=== PATIENT | male | born 1955 | race Caucasian/White ===

== ENCOUNTER 2018-10-31 21:23 | Emergency (ER) | payer BC ==
[2018-10-31 21:31] VITALS: TEMP 97.9
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
[2018-10-31 22:45] LABS: Basophils # (A) 0.1 k/uL (0-0.2); Basophils % (A) 2 %; Eosinophils # (A) 0.3 k/uL (0-0.7); Eosinophils % (A) 4 %; HCT 46.8 % (39.0-53.0); HGB 16.9 gm/dL (13.0-17.5); Lymphocytes # (A) 2.3 k/uL (1.0-4.8); Lymphocytes % (A) 35 %; MCH 33.6 pg (25.0-35.0); MCV 93.3 fL (80.0-100.0); Mean Platelet Volume 6.7; Monocytes # (A) 0.4 k/uL (0-1.0); Monocytes % (A) 7 %; Neutrophils # (A) 3.1 k/uL (1.3-7.7); Neutrophils % (A) 48 %; Platelet Count 188 k/uL (150-450); RBC 5.02 m/uL (4.30-5.90); RDW 12.6 % (11.5-15.5); WBC 6.5 k/uL (3.8-10.6)
--- NOTE | 2018-10-31 22:52 | XR ---
EXAM: XR Chest, 2 Views CLINICAL HISTORY: Chest Pain TECHNIQUE: Frontal and lateral views of the chest. COMPARISON: None. FINDINGS: Lungs: A 0.7 cm nodular density is noted at the right lung base. Neoplasm or metastatic disease cannot be excluded. Pleural space: No pneumothorax. Heart: Heart is normal in size. Cardiac mediastinal silhouette unremarkable. Mediastinum: See above. Bones/joints: No rib fracture. IMPRESSION: Nodule of the right lung base. CT imaging of the chest without contrast is advised for further evaluation.
[2018-10-31 22:53] LABS: ALT 30 U/L (21-72); AST 21 U/L (17-59); African American GFR (CKD) >90 (>60 ml/min/1.73 sqM); Albumin 4.4 g/dL (3.5-5.0); Alkaline Phosphatase 76 U/L (38-126); Anion Gap 11 mmol/L; Blood Urea Nitrogen 15 mg/dL (9-20); Calcium 9.6 mg/dL (8.4-10.2); Carbon Dioxide 21 mmol/L (22-30); Chloride 109 mmol/L (98-107); Glucose 116 mg/dL (74-99); Potassium 3.9 mmol/L (3.5-5.1); Sodium 141 mmol/L (137-145); Total Protein 7.5 g/dL (6.3-8.2)
[2018-10-31 23:06] LABS: D-Dimer 0.3 mg/L FEU (<0.60); INR 1.3 (<1.2); Partial Thromboplastin Time 34.9 sec (22.0-30.0)
[2018-11-01 00:53] VITALS: BP 132/85; PULSE 70; RESP 18
== END 2018-11-01 00:52 | disposition home or self-care (01) ==
LOC: EC 21:23
DX: M62.838 Other muscle spasm (principal); R42 Dizziness and giddiness; M79.601 Pain in right arm; I48.91 Unspecified atrial fibrillation; E11.9 Type 2 diabetes mellitus without complications; I10 Essential (primary) hypertension; Z87.891 Personal history of nicotine dependence; Z79.84 Long term (current) use of oral hypoglycemic drugs; Z79.01 Long term (current) use of anticoagulants; Z79.899 Other long term (current) drug therapy; Z88.8 Allergy status to other drugs, medicaments and biological substances
CPT/HCPCS: 36415; 71046; 80053; 83735; 84484; 85025; 85379; 85610; 85730; 93005; 99284

== ENCOUNTER 2022-07-19 09:27 | Emergency (ER) | payer MEDICARE ==
[2022-07-19] MEDS ORDERED: IPRATROPIUM-ALBUTEROL 3 ML NEB INHALATION STA (10:06)
--- NOTE | 2022-07-19 10:18 | XR ---
EXAMINATION TYPE: XR chest 2V DATE OF EXAM: 07/19/2022 COMPARISON: Chest x-ray April 17, 2022 HISTORY: Cough and difficulty in breathing. TECHNIQUE: Frontal and lateral views of the chest are obtained. FINDINGS: There is no suspicious new focal air space opacity, pleural effusion, or pneumothorax seen . The cardiac silhouette size is stable and within normal limits. The osseous structures are intac t. IMPRESSION: No acute pulmonary infiltrate. No significant change from prior.
--- NOTE | 2022-07-19 10:20 | ED ---
URI HPI - General Chief Complaint: Upper Respiratory Infection Stated Complaint: Sore throat, Congestion Time Seen by Provider: 07/19/22 09:33 Source: patient, RN notes reviewed Mode of arrival: ambulatory Limitations: no limitations - History of Present Illness Initial Comments: This is a 58-year-old male who presents to the emergency department for coughing and congestion. States that this started 4 days ago. He went to urgent care 2 days ago and was started on doxycycline. States that he has not had any improvement since starting this. He is also using [id number] Coricidin HBP, also with no improvement in symptoms. Denies any chest pain or difficulty breathing. States that the coughing and congestion are the most bothersome symptoms at this time. The cough is not productive. Denies having asthma, COPD, or any other respiratory illnesses. He is a former smoker. Denies any fevers, chills, sore throat, dyspnea, chest pain, palpitations, abdominal pain, nausea, vomiting, diarrhea, back pain, or headaches. MD Complaint: cough, nasal congestion Onset/Timin -: days(s) - Related Data Home Medications Medication Instructions Recorded Confirmed Linagliptin [Tradjenta] 5 mg PO DAILY 10/31/18 10/31/18 Losartan [Cozaar] 50 mg PO DAILY 10/31/18 10/31/18 Metoprolol Succinate [Toprol XL] 25 mg PO DAILY 10/31/18 10/31/18 Rivaroxaban [Xarelto] 20 mg PO DAILY 10/31/18 10/31/18 Sotalol [Betapace] 120 mg PO BID 10/31/18 10/31/18 Previous Rx's Medication Instructions Recorded Cyclobenzaprine [Flexeril] 10 mg PO TID PRN #15 tab 04/17/22 Ipratropium Dunreith 0.06%Nasal 2 spray EA NOSTRIL BID #15 ml 07/19/22 [Atrovent Nasal 0.06%] Promethazine/Dextromethorphan 5 ml PO Q4-6H PRN #473 ml 07/19/22 [Promethazine-Dm Syrup] predniSONE 50 mg PO DAILY 5 Days #5 tab 07/19/22 Allergies Allergy/AdvReac Type Severity Reaction Status Date / Time Penicillins AdvReac Nausea & Verified 07/19/22 09:32 Vomiting Avxebnh-[id number]-CzS Reductase AdvReac Unknown Verified 07/19/22 09:32 Inhibitor [Ushezgy-Fco-Vkb Reductase Inhibitor] tramadol AdvReac Nausea & Verified 07/19/22 09:32 Vomiting Review of Systems ROS Statement: Those systems with pertinent positive or pertinent negative responses have been documented in the HPI. ROS Other: All systems not noted in ROS Statement are negative. Past Medical History Past Medical History: Atrial Fibrillation, Diabetes Mellitus, Hypertension History of Any Multi-Drug Resistant Organisms: None Reported Past Surgical History: Back Surgery, Cholecystectomy Additional Past Surgical History / Comment(s): sinus sx Past Psychological History: No Psychological Hx Reported Smoking Status: Former smoker Past Alcohol Use History: Occasional Past Drug Use History: None Reported General Exam Limitations: no limitations General appearance: alert, in no apparent distress Head exam: Present: atraumatic, normocephalic, normal inspection Respiratory exam: Present: other (Diminished breath sounds bilaterally). Absent: wheezes, rales, rhonchi, accessory muscle use Cardiovascular Exam: Present: regular rate, normal rhythm, normal heart sounds. Absent: systolic murmur, diastolic murmur, rubs, gallop, clicks Neurological exam: Present: alert, oriented X3, CN II-XII intact Psychiatric exam: Present: normal affect, normal mood Skin exam: Present: warm, dry, intact, normal color. Absent: rash Course Vital Signs 07/19/22 07/19/22 07/19/22 09:30 10:01 11:01 Temperature 98.4 F Pulse Rate 101 H 78 Respiratory 22 16 Rate Blood Pressure 163/97 O2 Sat by Pulse 99 Oximetry 07/19/22 07/19/22 11:08 11:19 Temperature 98.6 F Pulse Rate 80 81 Respiratory 14 Rate Blood Pressure 136/88 O2 Sat by Pulse 98 Oximetry Medical Decision Making - Medical Decision Making This is a 66-year-old male who presents to the emergency department for coughing and congestion. Was pt. sent in by a medical professional or institution? @ -No Did you speak to anyone other than the patient for history? @ -No Did you review nursing and triage notes? @ -Yes, and I agree, it is accurate with regards to the patient's symptoms. Were old charts reviewed? @ -No Differential Diagnosis? @ -Differential Cough: Influenza, Covid, RSV, croup, allergic rhinitis, GERD, pneumonia, bronchitis, COPD, viral pharyngitis, streptococcal pharyngitis, this is not meant to be an all-inclusive list. EKG interpreted by me (3pts min.)? @ -Not obtained X-rays interpreted by me (1pt min.)? @ -Chest x-ray obtained, my interpretation identifies no localized consolidations or infiltrates. CT interpreted by me (1pt min.)? @ -Not obtained U/S interpreted by me (1pt. min.)? @ -Not obtained What testing was considered but not performed? (CT, X-rays, U/S, labs)? Why? @ -None What meds were considered but not given? Why? @ -None Did you discuss the management of the patient with other professionals? @ -No Did you reconcile home meds? @ -No Was smoking cessation discussed for >3mins.? @ -No Was critical care preformed (if so, how long)? @ -No Were there social determinants of health that impacted care today? How? (Homelessness, low income, unemployed, alcoholism, drug addiction, transportation, low edu. Level, literacy, decrease access to med. care, fci, rehab)? @ -No Was there de-escalation of care discussed even if they declined? (Discuss DNR or withdrawal of care, Hospice)? @ -No What co-morbidities impacted this encounter? (DM, HTN, Smoking, COPD, CAD, Cancer, CVA, Hep., AIDS, mental health diagnosis, sleep apnea, morbid obesity)? @ -DM Was patient admitted / discharged? @ -Discharged. Chest x-ray obtained revealing no acute findings. Covid, influenza, and RSV testing were negative. DuoNeb breathing treatment administered with some improvement in symptoms. Advised that this is most l ikely related to a viral bronchitis, which is why the doxycycline has not been effective. Prescription for prednisone, promethazine DM cough syrup, and ipratropium nasal spray provided with dosing instructions reviewed. Otherwise advised to continue with supportive care and follow up with his PCP in 1-2 days. Undiagnosed new problem with uncertain prognosis? @ -None Drug Therapy requiring intensive monitoring for toxicity (Heparin, Nitro, Insulin, Cardizem)? @ -None Were any procedures done? @ -None Diagnosis/symptom? @ -Bronchitis Acute, or Chronic, or Acute on Chronic? @ -Acute Uncomplicated (without systemic symptoms) or Complicated (systemic symptoms)? @ -Uncomplicated Side effects of treatment? @ -None Exacerbation, Progression, or Severe Exacerbation] @ -Not applicable Poses a threat to life or bodily function? @ -No Return precautions reviewed in depth, the patient is instructed to return to the emergency department with any new, worsening, or concerning symptoms. Patient verbalized understanding. This case was discussed in detail with the attending ED physician, Dr. Fowler. Presentation, findings, and treatment plan discussed in detail as well. - Lab Data Lab Results 07/19/22 Range/Units 10:10 Influenza Type A (PCR) Not Detected (Not Detectd) Influenza Type B (PCR) Not Detected (Not Detectd) RSV (PCR) Not Detected (Not Detectd) SARS-CoV-2 (PCR) Not Detected (Not Detectd) - Radiology Data Radiology results: report reviewed, image reviewed Disposition Clinical Impression: Upper respiratory tract infection Disposition: HOME SELF-CARE Instructions (If sedation given, give patient instructions): Upper Respiratory Infection (ED) Additional Instructions: Return to the emergency department with any new, worsening, or concerning symptoms. Take the prednisone daily for 5 days. You can use the cough medication every 4-6 hours as needed. The nasal spray can be used twice daily to help with the nasal drainage. Follow up with your primary care provider in 1-2 days. Prescriptions: Ipratropium Dunreith 0.06%Nasal [Atrovent Nasal 0.06%] 2 spray EA NOSTRIL BID #15 ml predniSONE 50 mg PO DAILY 5 Days #5 tab Promethazine/Dextromethorphan [Promethazine-Dm Syrup] 5 ml PO Q4-6H PRN #473 ml PRN Reason: Cough Is patient prescribed a controlled substance at d/c from ED?: No Referrals: Dawson Segovia MD [Primary Care Provider] - 1-2 days
[2022-07-19 11:21] VITALS: BP 136/88; PULSE 81; RESP 14; TEMP 98.6
== END 2022-07-19 11:27 | disposition home or self-care (01) ==
LOC: EC 09:27
DX: J06.9 Acute upper respiratory infection, unspecified (principal); I48.91 Unspecified atrial fibrillation; I10 Essential (primary) hypertension; E11.9 Type 2 diabetes mellitus without complications; Z87.891 Personal history of nicotine dependence; Z88.0 Allergy status to penicillin; Z88.5 Allergy status to narcotic agent; Z88.8 Allergy status to other drugs, medicaments and biological substances; Z79.01 Long term (current) use of anticoagulants; Z79.84 Long term (current) use of oral hypoglycemic drugs; Z79.899 Other long term (current) drug therapy; Z20.822 Contact with and (suspected) exposure to COVID-19
CPT/HCPCS: 71046; 87636; 94640; 99283

== ENCOUNTER 2023-10-14 08:00 | Inpatient (IN) | payer MEDICARE ==
[~2023-10-14 08:00] MED LIST: HEPARIN SODIUM,PORCINE 10,000 UNIT/ML 1 ML VIAL ONE; LIDOCAINE 1% INJ 10MG/ML (20 ML MDV) ONE; MIDAZOLAM 2 MG/2 ML VIAL ONE; PHENYLEPHRINE 10 MG/ML VIAL ONE; PROPOFOL 10 MG/ML 20 ML VIAL IV ONE; SODIUM CHLORIDE 0.9% 1,000 ML BAG ONE; SUCCINYLCHOLINE CHLORIDE 200 MG/10 ML VIAL IV ONE; fentaNYL (PF) 50 MCG/ML 2 ML AMP ONE
[2023-10-14] MEDS: IOPAMIDOL-370 100ML BTL INJ ONE (10:15)
[2023-10-14] MEDS ORDERED: ONDANSETRON 4 MG/2 ML VIAL ONE ×2 (19:02)
[2023-10-15] MEDS ORDERED: FLECAINIDE 50 MG TAB ONE ×4 (12:39→20:20)
[2023-10-15] MEDS ORDERED: METOPROLOL TARTRATE 50 MG TAB ONE ×4 (12:39→20:20)
[2023-10-15] MEDS ORDERED: DILTIAZEM 125 MG/25 ML VIAL IV ONE (17:55)
[2023-10-15] MEDS ORDERED: SODIUM CHLORIDE 0.9% 100 ML BAG IV ONE (17:55)
[2023-10-16] MEDS ORDERED: FLECAINIDE 50 MG TAB ONE ×4 (05:53→17:13)
[2023-10-16] MEDS ORDERED: LOSARTAN 25 MG TAB ONE ×2 (08:47)
[2023-10-16] MEDS ORDERED: RIVAROXABAN 20 MG TAB PO ONE ×2 (08:48)
[2023-10-16] MEDS ORDERED: METOPROLOL TARTRATE 50 MG TAB ONE ×6 (08:48→19:56)
[2023-10-16] MEDS ORDERED: PROPOFOL 10 MG/ML 20 ML VIAL IV ONE (12:00)
[2023-10-16] MEDS ORDERED: ONDANSETRON 4 MG/2 ML VIAL ONE (12:00)
[2023-10-16] MEDS ORDERED: glipiZIDE 10 MG TAB ONE ×2 (15:36)
[2023-10-17] MEDS ORDERED: DILTIAZEM 125 MG in SODIUM CHLORIDE 0.9% 100 ML IV SCH (07:15)
[2023-10-17] MEDS ORDERED: ONDANSETRON 4 MG/2 ML VIAL IVP PRN (07:18)
[2023-10-17] MEDS ORDERED: ACETAMINOPHEN TAB 325 MG TAB PO PRN (07:19)
[2023-10-17] MEDS ORDERED: glipiZIDE 10 MG TAB PO SCH (07:30)
[2023-10-17] MEDS ORDERED: RIVAROXABAN 20 MG TAB PO SCH (07:30)
[2023-10-17] MEDS ORDERED: RIVAROXABAN 20 MG TAB PO ONE ×2 (08:26)
[2023-10-17] MEDS ORDERED: LOSARTAN 25 MG TAB ONE ×2 (08:26)
[2023-10-17] MEDS ORDERED: METOPROLOL TARTRATE 50 MG TAB ONE ×2 (08:26)
[2023-10-17] MEDS ORDERED: glipiZIDE 5 MG TAB ONE ×2 (08:26)
[2023-10-17] MEDS ORDERED: LOSARTAN 25 MG TAB PO SCH (09:00)
[2023-10-17] MEDS ORDERED: COLCHICINE 0.6 MG EACH PO SCH (09:00)
[2023-10-17] MEDS ORDERED: METOPROLOL TARTRATE 50 MG TAB PO SCH ×2 (09:00)
--- NOTE | 2023-10-17 15:56 | HP ---
HISTORY AND PHYSICAL HISTORY: A -wyks-unv male patient who has paroxysmal atrial fibrillation despite sotalol 120 mg twice daily. He has a longstanding history of atrial fibrillation for many, many years and that was documented almost 10 years back. Recently, he underwent back surgery and he had atrial fibrillation with RVR once again. Initially he did well with sotalol 120 mg twice daily, but he is now experiencing frequent episodes of atrial fibrillation despite sotalol and they last for about an hour at a time. He is asymptomatic from this. He also has a history of polycythemia and he had recently a phlebotomy performed about 2 weeks back. He has mild sleep apnea. PHYSICAL EXAMINATION: HEART: On examination, his heart sounds are normal and regular. Normal S1, normal S2. No murmurs. LUNGS: Breath sounds are clear. Clear lungs. NECK: No JVD. He denies any headaches, blurred vision, shortness of breath, orthopnea, PND, syncope, or chest pain. PAST HISTORY: Type 2 diabetes, hypertension. He has a history of gastric ulcer without hemorrhage. SOCIAL HISTORY: He stopped smoking 40 years back. IMPRESSION: 1. Paroxysmal atrial fibrillation with RVR despite sotalol 120 mg twice daily with increasing episodes and frequent breakthrough episodes lasting for up to 1 hour. 2. Hypertension. 3. Type 2 diabetes. 4. Polycythemia vera. The labs were reviewed and his hematocrit is 42 and hemoglobin is 15.0, performed after his recent phlebotomy. PLAN: Proceed with atrial fibrillation ablation for management of paroxysmal symptomatic atrial fibrillation which is drug refractory. MMODL / IJN: [id number] /
--- NOTE | 2023-10-17 15:56 | CE ---
CARDIAC ELECTROPHYSIOLOGY REPORT DIAGNOSIS: Paroxysmal atrial fibrillation, drug refractory despite 120 mg of sotalol b.i.d. DETAILS OF THE PROCEDURE: The patient is brought to the EP lab in a fasting state. Written informed consent was obtained prior to the procedure. General anesthesia was provided. Temperature monitoring and esophageal probe was placed in the esophagus. Venous sheaths were placed in the right and left femoral veins. IV heparin was started. Intracardiac echo revealed normal LV function. No pericardial effusion. No left atrial appendage thrombus and large left atrium. Lyne-ha-dauew transseptal catheterization was performed. Right atrial pressure was 7/2/4 mmHg and LA pressure 11/1/6 mmHg. Sheath was placed in the left atrium. This was exchanged for cryoablation sheath. Cryoablation of the pulmonary veins was performed. Several attempts had to be made for complete occlusion of all 4 pulmonary veins on account of clockwise rotation of the heart, a very posterior takeoff of the right inferior pulmonary vein, relatively anterior takeoff of the right superior pulmonary vein, very posteriorly oriented left inferior pulmonary vein with two large tributaries, more anteriorly oriented takeoff for the left superior pulmonary vein. In addition, the right superior, left superior, and the left inferior veins were quite large with large early branching. All veins were successfully isolated with temperature monitoring of the esophagus, esophageal deflection, and phrenic nerve monitoring. There was no paresis noted. The left atrial septum was also ablated with cannulation of the superior branch of the right inferior pulmonary vein. The patient tolerated the procedure well without any acute complications. During cannulation of the left superior pulmonary vein, an atrial tachycardia with eccentric activation was induced. Later, this degenerated to atrial fibrillation and he underwent electrical cardioversion for this. Sinus cycle length 933 milliseconds, DE interval 149 milliseconds, and QRS 110 milliseconds, and QT interval 427 milliseconds in sinus rhythm. AH interval 90 milliseconds and HV interval 41 milliseconds. AV node Wenckebach block 420 milliseconds and sinus node recovery times at a pacing cycle length of 600 milliseconds was 1006 milliseconds. All sheaths were removed at the end of the procedure and venous stasis was obtained on both sides with closure device. IMPRESSION: Successful ablation for atrial fibrillation with pulmonary vein isolation and left atrial septal ablation. PLAN: 1. Continue anticoagulation. 2. Stop sotalol. 3. Watch for any macro reentry especially mitral reentry in the future. MMODL / IJN: [id number] /
== END 2023-10-17 08:55 | disposition home or self-care (01) | DRG 274 ==
LOC: CATHEP 08:00 → 3NCARDOBS 10:15
PROVIDERS: ADMIT Internal Medicine Clinical Cardiac Electrophysiology; ATTEND Internal Medicine Clinical Cardiac Electrophysiology
PROC: 5A2204Z Restoration of Cardiac Rhythm, Single (ICD-10-PCS; 2023-10-14)
PROC: 02553ZZ Destruction of Atrial Septum, Percutaneous Approach (ICD-10-PCS; principal; 2023-10-14 07:15)
PROC: 055 Upper Veins, Destruction (ICD-10-PCS; 2023-10-14 07:15)
DX: I48.0 Paroxysmal atrial fibrillation (principal); E11.9 Type 2 diabetes mellitus without complications; D45 Polycythemia vera; G47.30 Sleep apnea, unspecified; I10 Essential (primary) hypertension; I34.0 Nonrheumatic mitral (valve) insufficiency; I25.10 Atherosclerotic heart disease of native coronary artery without angina pectoris; R79.89 Other specified abnormal findings of blood chemistry; Z79.01 Long term (current) use of anticoagulants; Z79.84 Long term (current) use of oral hypoglycemic drugs; Z87.11 Personal history of peptic ulcer disease; Z87.891 Personal history of nicotine dependence; Z79.899 Other long term (current) drug therapy; Z88.0 Allergy status to penicillin

== ENCOUNTER 2023-10-18 21:27 | Emergency (ER) | payer MEDICARE ==
[~2023-10-18 21:27] MED LIST changes: -HEPARIN SODIUM,PORCINE 10,000 UNIT/ML 1 ML VIAL ONE; +HYDROmorphone 0.5 MG/0.5 ML SYRINGE ONE; -LIDOCAINE 1% INJ 10MG/ML (20 ML MDV) ONE; -MIDAZOLAM 2 MG/2 ML VIAL ONE; -PHENYLEPHRINE 10 MG/ML VIAL ONE; -PROPOFOL 10 MG/ML 20 ML VIAL IV ONE; -SODIUM CHLORIDE 0.9% 1,000 ML BAG ONE; -SUCCINYLCHOLINE CHLORIDE 200 MG/10 ML VIAL IV ONE; -fentaNYL (PF) 50 MCG/ML 2 ML AMP ONE
[2023-10-18] MEDS ORDERED: ONDANSETRON 4 MG/2 ML VIAL ONE (23:37)
[2023-10-18] MEDS ORDERED: SODIUM CHLORIDE 0.9% 1,000 ML BAG ONE (23:38)
[2023-10-18] MEDS ORDERED: MORPHINE SULFATE 4 MG/ML SYRINGE ONE (23:38)
[2023-10-18] MEDS ORDERED: LABETALOL 5 MG/ML VIAL MDV ONE (23:38)
--- NOTE | 2023-11-27 18:06 | XR ---
EXAM: XR Chest, 2 Views CLINICAL HISTORY: hx of ablation this past friday nvd TECHNIQUE: Frontal and lateral views of the chest. COMPARISON: No relevant prior studies available. IMPRESSION: Cardiomegaly. Mild vascular congestion Radiologist: Pricila Mckee MD Electronically Signed: 10/19/23 03:30 Study first marked ready to read at 01:58, study last marked ready to read at 01:58, initial results transmitted at 03:30 MTDD
--- NOTE | 2023-11-27 18:07 | CT ---
EXAM: CT Angiography Chest With Intravenous Contrast CLINICAL HISTORY: hx spinal sx, epigastric pain, vomiting, heart ablation Friday TECHNIQUE: Axial computed tomographic angiography images of the chest with intravenous contrast. CTDI is 26.9 mGy and DLP is 500.5 mGy-cm. This CT exam was performed using one or more of the following dose reduction techniques: automated exposure control, adjustment of the mA and/or kV according to patient size, and/or use of iterative reconstruction technique. MIP reconstructed images were created and reviewed. COMPARISON: No relevant prior studies available. FINDINGS: LUNGS:No focal consolidation, pleural effusion, or pneumothorax. Atelectasis at the lung bases. HEART:Cardiomegaly. VASCULATURE:No acute pulmonary embolism. Atherosclerotic changes of the aorta. THYROID: Within normal limits. MEDIASTINUM & LYMPH NODES: There are no pathologically enlarged mediastinal, hilar, or axillary lymph nodes. SUPERIOR ABDOMEN:Hepatic steatosis. Cholecystectomy. MUSCULOSKELETAL:Degenerative changes. IMPRESSION: No acute pulmonary embolism. Radiologist: Artur Cedeno MD Electronically Signed: 10/19/23 03:01 Study first marked ready to read at 01:58, study last marked ready to read at 01:58, initial results transmitted at 03:01 [facility]
--- NOTE | 2023-11-27 18:09 | CT ---
EXAM: CT Abdomen and Pelvis With Intravenous Contrast CLINICAL HISTORY: hx spinal sx, epigastric pain, vomiting, heart ablation Friday TECHNIQUE: Axial computed tomography images of the abdomen and pelvis with intravenous contrast. CTDI is 23.7 mGy and DLP is 1207.2 mGy-cm. This CT exam was performed using one or more of the following dose reduction techniques: automated exposure control, adjustment of the mA and/or kV according to patient size, and/or use of iterative reconstruction technique. COMPARISON: No previous studies. FINDINGS: Lung bases: Minimal scarring and subsegmental atelectasis noted at the lung bases. Pleural space: Small left pleural effusion. Heart:Heart is top normal in size. Mediastinum: Small hiatal hernia and distal esophagitis. ABDOMEN: Liver: Fatty liver. Gallbladder and bile ducts: Status post cholecystectomy. No ductal dilation. Pancreas: See below. Spleen: Spleen enhances uniformly. Adrenals: The adrenal glands, the head, body, tail of the pancreas are unremarkable. Kidneys and ureters:Nonspecific stranding about the perinephric spaces. 0.2 cm nonobstructing calculus lower pole region of the right kidney. Stomach and bowel: Moderate quantity of ingested material in the stomach. Moderate quantity of stool throughout the colon. Diverticulosis without diverticulitis. No obstruction. PELVIS: Appendix:Appendix is seen on coronal image 35 and is unremarkable. Bladder:Unremarkable. No mass. Reproductive:Heterogeneity of the prostate gland. ABDOMEN and PELVIS: Intraperitoneal space:Unremarkable. No free air. No significant fluid collection. Bones/joints: Postsurgical changes in the mid to lower lumbar spine. Laminectomy defects at the lower lumbar spine. No acute fracture. No dislocation. Soft tissues: Ischiorectal fat is clean. Vasculature: Portal vein is patent. Atherosclerotic disease of the abdominal aorta without change in caliber. Flow is noted within the celiac, SMA, the renal arteries, and REBEKAH. No abdominal aortic aneurysm. Lymph nodes:Unremarkable. No retroperitoneal lymphadenopathy. Other findings:ASCVD. IMPRESSION: 1. Cardiomegaly and ASCVD. 2. Small hiatal hernia and possible distal esophagitis. 3. Small left pleural effusion. 4. Fatty liver. 5. Status post cholecystectomy. 6. Nonspecific stranding about the perinephric spaces without hydronephrosis. 7. Appendix is unremarkable. 8. No bowel obstruction. 9. Diverticulosis without diverticulitis. 10. Heterogeneity of the prostate gland. Radiologist: Handy Mariee MD Electronically Signed: 10/19/23 03:18 Study first marked ready to read at 01:58, study last marked ready to read at 01:58, initial results transmitted at 03:18 MTDD
== END 2023-10-19 07:29 | disposition home or self-care (01) ==
LOC: EC 21:27
CPT/HCPCS: 71046; 71275; 74177; 93005; 96361; 96374; 96375; 99284

== ENCOUNTER 2023-10-19 20:11 | Inpatient (IN) | payer MEDICARE ==
--- NOTE | 2023-10-19 21:02 | ED ---
Recheck HPI - General Chief Complaint: Recheck/Abnormal Lab/Rx Stated Complaint: Chest Pain Time Seen by Provider: 10/19/23 20:30 Source: patient, RN notes reviewed Mode of arrival: ambulatory Limitations: no limitations - History of Present Illness Initial Comments: 68-year-old male with a history of atrial fibrillation on Xarelto presents emergency department for chief complaint of reevaluation. Patient was admitted to [facility] earlier in the week for a cardiac ablation with Dr. Manning and cardioversion and was discharged home. He was evaluated this afternoon at [facility] for epigastric pain, nausea and headache where it was found that his troponin was elevated and was sent to this facility for further evaluation and continuity of care. Currently, patient is denying symptoms of chest pain, heart palpitations, dizziness, lightheadedness, epigastric pain, nausea, vomiting, diaphoresis. - Related Data Home Medications Medication Instructions Recorded Confirmed Linagliptin [Tradjenta] 5 mg PO DAILY 10/31/18 10/31/18 Losartan [Cozaar] 50 mg PO DAILY 10/31/18 10/31/18 Metoprolol Succinate [Toprol XL] 25 mg PO DAILY 10/31/18 10/31/18 Rivaroxaban [Xarelto] 20 mg PO DAILY 10/31/18 10/31/18 Sotalol [Betapace] 120 mg PO BID 10/31/18 10/31/18 Previous Rx's Medication Instructions Recorded Cyclobenzaprine [Flexeril] 10 mg PO TID PRN #15 tab 04/17/22 Ipratropium [place] 0.06%Nasal 2 spray EA NOSTRIL BID #15 ml 07/19/22 [Atrovent Nasal 0.06%] Promethazine/Dextromethorphan 5 ml PO Q4-6H PRN #473 ml 07/19/22 [Promethazine-Dm Syrup] predniSONE 50 mg PO DAILY 5 Days #5 tab 07/19/22 Allergies Allergy/AdvReac Type Severity Reaction Status Date / Time Penicillins AdvReac Nausea & Verified 10/19/23 20:14 Vomiting Tmqrhlv-MLW-UsC Reductase AdvReac Unknown Verified 10/19/23 20:14 Inhibitor [Uowemtt-Fyi-Wjp Reductase Inhibitor] tramadol AdvReac Nausea & Verified 10/19/23 20:14 Vomiting Review of Systems ROS Statement: Those systems with pertinent positive or pertinent negative responses have been documented in the HPI. ROS Other: All systems not noted in ROS Statement are negative. Past Medical History Past Medical History: Atrial Fibrillation, Diabetes Mellitus, Hypertension History of Any Multi-Drug Resistant Organisms: None Reported Past Surgical History: Ablation, Back Surgery, Cholecystectomy Additional Past Surgical History / Comment(s): sinus sx Past Psychological History: No Psychological Hx Reported Smoking Status: Former smoker Past Alcohol Use History: Occasional Past Drug Use History: None Reported General Exam Limitations: no limitations General appearance: alert, in no apparent distress Head exam: Present: atraumatic, normocephalic, normal inspection Eye exam: Present: normal appearance, PERRL, EOMI. Absent: scleral icterus, conjunctival injection, periorbital swelling ENT exam: Present: normal exam, mucous membranes moist Neck exam: Present: normal inspection. Absent: tenderness, meningismus, lymphadenopathy Respiratory exam: Present: normal lung sounds bilaterally. Absent: respiratory distress, wheezes, rales, rhonchi, stridor Cardiovascular Exam: Present: regular rate, normal rhythm, normal heart sounds. Absent: systolic murmur, diastolic murmur, rubs, gallop, clicks GI/Abdominal exam: Present: soft, normal bowel sounds. Absent: distended, tenderness, guarding, rebound, rigid Extremities exam: Present: normal inspection, full ROM, normal capillary refill. Absent: tenderness, pedal edema, joint swelling, calf tenderness Back exam: Present: normal inspection Course Vital Signs 10/19/23 10/20/23 20:12 00:06 Temperature 98 F Pulse Rate 83 81 Respiratory 18 18 Rate Blood Pressure 160/91 142/90 O2 Sat by Pulse 98 98 Oximetry Medical Decision Making - Medical Decision Making Was pt. 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 Did you speak to anyone other than the patient for history (EMS, parent, family, police, friend...)? What history was obtained from this source @ -No Did you review nursing and triage notes (agree or disagree)? Why? @ -I reviewed and agree with nursing and triage notes Were old charts reviewed (outside hosp., previous admission, EMS record, old EKG, old radiological studies, urgent care reports/EKG's, assisted records)? Report findings @ -No old charts were reviewed Differential Diagnosis (chest pain, altered mental status, abdominal pain women, abdominal pain men, vaginal bleeding, weakness, fever, dyspnea, syncope, headache, dizziness, GI bleed, back pain, seizure, CVA, palpatations, mental health, musculoskeletal)? @ -Differential Chest Pain: Stable Angina, Unstable Angina, STEMI, NSTEMI Aortic Dissection, Pneumothorax, Musculoskeletal, Esophageal Spasm GERD, Cholecystitis, Pancreatitis, Zoster, this is not meant to be an all-inclusive list. EKG interpreted by me (3pts min.). @ -completed at 2019, sinus rhythm with occasional ectopic premature complexes, ventricular rate 87, NC interval 172, QTc 402. No acute signs of ischemia. X-rays interpreted by me (1pt min.). @ -None done CT interpreted by me (1pt min.). @ -None done U/S interpreted by me (1pt. min.). @ -None done What testing was considered but not performed or refused? (CT, X-rays, U/S, labs)? Why? @ -None What meds were considered but not given or refused? Why? @ -None Did you discuss the management of the patient with other professionals (professionals i.e. , PA, ECONOMIC HISTORIAN, lab, RT, psych nurse, medical social consultant, care program resident, teacher, title officer, casework supervisor)? Give summary @ -Internal medicine physician, Dr. Gómez, these with admission and cardiology consultation. He is also agreed that patient will be deferred for anticoagulation with heparin at this time with an elevated troponin of 0.206 with a recent cardiac ablation completed last week. Was smoking cessation discussed for >3mins.? @ -No Was critical care preformed (if so, how long)? @ -No Were there social determinants of health that impacted care today? How? (Homelessness, low income, unemployed, alcoholism, drug addiction, transportation, low edu. Level, literacy, decrease access to med. care, [facility], rehab)? @ -No Was there de-escalation of care discussed even if they declined (Discuss DNR or withdrawal of care, Hospice)? DNR status @ -No What co-morbidities impacted this encounter? (DM, HTN, Smoking, COPD, CAD, Cancer, CVA, ARF, Chemo, Hep., AIDS, mental health diagnosis, sleep apnea, morbid obesity)? @ -None Was patient admitted / discharged? Hospital course, mention meds given and route, prescriptions, significant lab abnormalities, going to OR and other pertinent info. @ -68-year-old male with elevated troponin. On patient's arrival to emergency department he is in sinus rhythm and vitals are stable. Laboratory evaluation patient he is currently asymptomatic denies symptoms of chest pain, shortness of breath, epigastric pain, nausea. EKG evaluated in sinus rhythm. CBC, CMP, coagulation profile within normal limits. Troponin elevated at 0.206. Patient will be admitted to internal medicine with cardiology on consult for further evaluation. Anticoagulation will not be initiated at this time with the elevated troponin likely secondary to cardiac ablation was completed last week. Discussed with Dr. Urbano. Undiagnosed new problem with uncertain prognosis? @ -No Drug Therapy requiring intensive monitoring for toxicity (Heparin, Nitro, Insulin, Cardizem)? @ -No Were any procedures done? @ -No Diagnosis/symptom? @ -elevated troponin, Acute, or Chronic, or Acute on Chronic? @ -acute Uncomplicated (without systemic symptoms) or Complicated (systemic symptoms)? @ -uncomplicated Side effects of treatment? @ -No Exacerbation, Progression, or Severe Exacerbation? @ -No Poses a threat to life or bodily function? How? (Chest pain, [place], [place], pneumonia, PE, COPD, DKA, ARF, appy, cholecystitis, CVA, Diverticulitis, Homicidal, Suicidal, threat to staff... and all critical care pts) @ -No - Lab Data Result diagrams: 10/19/23 20:25 10/19/23 20:25 Lab Results 10/19/23 10/19/23 10/19/23 Range/Units 20:19 20:25 20:25 WBC 8.2 (3.8-10.6) k/uL RBC 4.31 (4.30-5.90) m/uL Hgb 14.4 (13.0-17.5) gm/dL Hct 42.0 (39.0-53.0) % MCV 97.5 (80.0-100.0) fL MCH 33.5 (25.0-35.0) pg MCHC 34.3 (31.0-37.0) g/dL RDW 13.2 (11.5-15.5) % Plt Count 221 (150-450) k/uL MPV 7.5 Neutrophils % 63 % Lymphocytes % 25 % Monocytes % 7 % Eosinophils % 1 % Basophils % 1 % Neutrophils # 5.2 (1.3-7.7) k/uL Lymphocytes # 2.1 (1.0-4.8) k/uL Monocytes # 0.6 (0-1.0) k/uL Eosinophils # 0.1 (0-0.7) k/uL Basophils # 0.1 (0-0.2) k/uL PT 12.9 H (10.0-12.5) sec INR 1.2 H (<1.2) APTT 28.8 (22.0-30.0) sec Sodium (137-145) mmol/L Potassium (3.5-5.1) mmol/L Chloride (98-107) mmol/L Carbon Dioxide (22-30) mmol/L Anion Gap mmol/L BUN (9-20) mg/dL Creatinine (0.66-1.25) mg/dL Est GFR (CKD-EPI)AfAm (>60 ml/min/1.73 sqM) Est GFR (CKD-EPI)NonAf (>60 ml/min/1.73 sqM) Glucose (74-99) mg/dL Calcium (8.4-10.2) mg/dL Total Bilirubin (0.2-1.3) mg/dL AST (17-59) U/L ALT (4-49) U/L Alkaline Phosphatase (38-126) U/L Troponin I 0.206 H* (0.000-0.034) ng/mL Total Protein (6.3-8.2) g/dL Albumin (3.5-5.0) g/dL 10/19/23 Range/Units 20:25 WBC (3.8-10.6) k/uL RBC (4.30-5.90) m/uL Hgb (13.0-17.5) gm/dL Hct (39.0-53.0) % MCV (80.0-100.0) fL MCH (25.0-35.0) pg MCHC (31.0-37.0) g/dL RDW (11.5-15.5) % Plt Count (150-450) k/uL MPV Neutrophils % % Lymphocytes % % Monocytes % % Eosinophils % % Basophils % % Neutrophils # (1.3-7.7) k/uL Lymphocytes # (1.0-4.8) k/uL Monocytes # (0-1.0) k/uL Eosinophils # (0-0.7) k/uL Basophils # (0-0.2) k/uL PT (10.0-12.5) sec INR (<1.2) APTT (22.0-30.0) sec Sodium 140 (137-145) mmol/L Potassium 4.2 (3.5-5.1) mmol/L Chloride 109 H (98-107) mmol/L Carbon Dioxide 22 (22-30) mmol/L Anion Gap 9 mmol/L BUN 16 (9-20) mg/dL Creatinine 0.76 (0.66-1.25) mg/dL Est GFR (CKD-EPI)AfAm >90 (>60 ml/min/1.73 sqM) Est GFR (CKD-EPI)NonAf >90 (>60 ml/min/1.73 sqM) Glucose 83 (74-99) mg/dL Calcium 9.1 (8.4-10.2) mg/dL Total Bilirubin 1.5 H (0.2-1.3) mg/dL AST 34 (17-59) U/L ALT 24 (4-49) U/L Alkaline Phosphatase 63 (38-126) U/L Troponin I (0.000-0.034) ng/mL Total Protein 7.6 (6.3-8.2) g/dL Albumin 4.4 (3.5-5.0) g/dL Disposition Clinical Impression: Elevated troponin Disposition: ADMITTED IP TO THIS HOSP Condition: Good Referrals: Helene Saldaña DO [Primary Care Provider] - 1-2 days Decision to Admit Reason: Admit from EC Decision Date: 10/20/23 Decision Time: 00:22
[2023-10-19 21:36] LABS: Basophils # (A) 0.1 k/uL (0-0.2); Basophils % (A) 1 %; Eosinophils # (A) 0.1 k/uL (0-0.7); Eosinophils % (A) 1 %; HGB 14.4 gm/dL (13.0-17.5); Lymphocytes # (A) 2.1 k/uL (1.0-4.8); Lymphocytes % (A) 25 %; MCH 33.5 pg (25.0-35.0); MCHC 34.3 g/dL (31.0-37.0); MCV 97.5 fL (80.0-100.0); Mean Platelet Volume 7.5; Monocytes # (A) 0.6 k/uL (0-1.0); Monocytes % (A) 7 %; Neutrophils # (A) 5.2 k/uL (1.3-7.7); Neutrophils % (A) 63 %; Platelet Count 221 k/uL (150-450); RBC 4.31 m/uL (4.30-5.90); RDW 13.2 % (11.5-15.5); WBC 8.2 k/uL (3.8-10.6)
[2023-10-19 21:51] LABS: INR 1.2 (<1.2); Partial Thromboplastin Time 28.8 sec (22.0-30.0); Prothrombin Time 12.9 sec (10.0-12.5)
[2023-10-19 22:22] LABS: ALT 24 U/L (4-49); AST 34 U/L (17-59); African American GFR (CKD) >90 (>60 ml/min/1.73 sqM); Albumin 4.4 g/dL (3.5-5.0); Alkaline Phosphatase 63 U/L (38-126); Anion Gap 9 mmol/L; Blood Urea Nitrogen 16 mg/dL (9-20); Calcium 9.1 mg/dL (8.4-10.2); Carbon Dioxide 22 mmol/L (22-30); Chloride 109 mmol/L (98-107); Glucose 83 mg/dL (74-99); Non-African American GFR(CKD) >90 (>60 ml/min/1.73 sqM); Potassium 4.2 mmol/L (3.5-5.1); Sodium 140 mmol/L (137-145); Total Bilirubin 1.5 mg/dL (0.2-1.3); Total Protein 7.6 g/dL (6.3-8.2)
[2023-10-20] MEDS ORDERED: NALOXONE 0.4 MG/ML 1 ML VIAL IV PRN (00:20)
--- NOTE | 2023-10-20 04:28 | P.HPIM ---
History of Present Illness H&P Date: 10/20/23 Patient is a 68-year-old male with PMH of A-fib on Xarelto, type II DM, hypertension who was transferred from [facility] where the patient had presented with complaints of nausea and vomiting and feeling unwell. Of note, the patient was admitted at [facility] for an ablation which she underwent this past Friday. He is reportedly unsuccessful and the patient was sent home on Friday. He reports that the following day on Friday, he developed nausea with persistent episodes of vomiting and feeling unwell. He was seen at the emergency room and was subsequently discharged home. On Friday, he decided to go to [place] emergency room where he was noted to have an elevated troponin. The patient was sent to [facility] for further evaluation. He reports feeling significantly better at the time of interview. At baseline. Reports that his nausea has subsided soon after arrival in the emergency room. Clarifies ingestible, shortness breath or fever, chills, cough, abdominal pain, diarrhea. In the emergency room, EKG revealed sinus rhythm with APCs at [address]/T wave changes were reviewed by me. Laboratory values unremarkable troponin 0.206, total bilirubin 1.5, WBC count 8.1 hemoglobin 14.4. ED documentation reviewed and case discussed with ED provider. Review of systems: Pertinent positives and negatives as discussed in HPI, a complete review of systems was performed and all other systems are negative. Physical examination: Vital signs reviewed General: non toxic, no distress, appears at stated age, normal weight Derm: no unusual rashes/lesions, warm Head: atraumatic, normocephalic, symmetric Eyes: EOMI, no lid lag, anicteric sclera, pupils equal round reactive to light ENT: Nose and ears atraumatic Neck: No cervical lymphadenopathy, trachea midline, supple Mouth: no lip lesion, mucus membranes moist Cardiovascular: S1S2 reg, no murmur, positive dorsalis pedis pulse bilateral, no edema Lungs: CTA bilateral, no rhonchi, no rales, no accessory muscle use Abdominal: soft, nontender to palpation, no guarding Ext: muscle strength 5 out of 5 in all 4 extremities grossly, no gross muscle atrophy, no contractures, Neuro: CN II-XI grossly intact, no gross focal neuro deficits Psych: Alert, oriented, appropriate affect Assessment: Elevated troponin, status post recent ablation Chronic additions: A-fib, type II DM, hypertension Imaging: In the emergency room, EKG revealed sinus rhythm with APCs at [address]/T wave changes were reviewed by me. Data Review: Laboratory values unremarkable troponin 0.206, total bilirubin 1.5, WBC count 8.1 hemoglobin 14.4. Plan: Continue to trend troponin Cardiology consulted Cardiac monitoring Continue with aspirin and statin Resume home medications including Xarelto DVT prophylaxis: Xarelto The patient is admitted with an anticipated greater than 2 midnight stay for evaluation of elevated troponin CODE STATUS: Full Code Discussed with: Patient Anticipated discharge place: Home Past Medical History Past Medical History: Atrial Fibrillation, Diabetes Mellitus, Hypertension History of Any Multi-Drug Resistant Organisms: None Reported Past Surgical History: Ablation, Back Surgery, Cholecystectomy Additional Past Surgical History / Comment(s): sinus sx Past Anesthesia/Blood Transfusion Reactions: Postoperative Nausea & Vomiting (PONV) Additional Past Anesthesia/Blood Transfusion Reaction / Comment(s): usually have antinausea meds with anesthesia Past Psychological History: No Psychological Hx Reported Smoking Status: Former smoker Past Alcohol Use History: None Reported Past Drug Use History: None Reported - Past Family History Father Family Medical History: Chest Pain / Angina Medications and Allergies Home Medications Medication Instructions Recorded Confirmed Type Linagliptin [Tradjenta] 5 mg PO DAILY 10/31/18 10/31/18 History Losartan [Cozaar] 25 mg PO DAILY 10/31/18 10/20/23 History Metoprolol Succinate [Toprol XL] 100 mg PO DAILY 10/31/18 10/20/23 History Rivaroxaban [Xarelto] 20 mg PO DAILY 10/31/18 10/20/23 History Sotalol [Betapace] 120 mg PO BID 10/31/18 10/31/18 History Cyclobenzaprine [Flexeril] 10 mg PO TID PRN #15 tab 04/17/22 Rx Ipratropium [place] 0.06%Nasal 2 spray EA NOSTRIL BID #15 ml 07/19/22 Rx [Atrovent Nasal 0.06%] Promethazine/Dextromethorphan 5 ml PO Q4-6H PRN #473 ml 07/19/22 Rx [Promethazine-Dm Syrup] predniSONE 50 mg PO DAILY 5 Days #5 tab 07/19/22 Rx glipiZIDE 10 ng PO DAILY 10/20/23 10/20/23 History Allergies Allergy/AdvReac Type Severity Reaction Status Date / Time Penicillins AdvReac Nausea & Verified 10/19/23 20:14 Vomiting Iuhjlww-HPN-RcD Reductase AdvReac Unknown Verified 10/19/23 20:14 Inhibitor [Loalifa-Ymg-Cyn Reductase Inhibitor] tramadol AdvReac Nausea & Verified 10/19/23 20:14 Vomiting Physical Exam Vitals: Vital Signs Temp Pulse Pulse Resp BP BP Pulse Ox 10/20/23 03:02 97.4 F L 76 18 163/94 98 10/20/23 02:00 18 10/20/23 01:46 97.7 F 86 18 163/94 97 10/20/23 01:15 97.9 F 86 18 146/89 99 10/20/23 00:06 81 18 142/90 98 10/19/23 20:12 98 F 83 18 160/91 98 Intake and Output 10/19/23 10/19/23 10/20/23 14:59 22:59 06:59 Other: Voiding Method Toilet Weight 83.007 kg 83.007 kg Results CBC & Chem 7: 10/19/23 20:25 10/19/23 20:25 Labs: Abnormal Lab Results - Last 24 Hours (Table) 10/19/23 10/19/23 10/19/23 Range/Units 20:19 20:25 20:25 PT 12.9 H (10.0-12.5) sec INR 1.2 H (<1.2) Chloride 109 H (98-107) mmol/L Total Bilirubin 1.5 H (0.2-1.3) mg/dL Troponin I 0.206 H* (0.000-0.034) ng/mL Thrombosis Risk Factor Assmnt - Choose All That Apply Any of the Below Risk Factors Present?: Yes Each Factor Represents 1 point: History of prior major surgery (<1month), Obesity (BMI >25) Each Risk Factor Represents 2 Points: Age 61-74 years Other congenital or acquired thrombophilia - If yes, enter type in comment: No Thrombosis Risk Factor Assessment Total Risk Factor Score: 4 Thrombosis Risk Factor Assessment Level: Moderate Risk
[2023-10-20] MEDS: ATORVASTATIN 80 MG TAB PO STA (04:37)
[2023-10-20] MEDS: ASPIRIN 325 MG TAB PO STA (04:37)
[2023-10-20 06:24] LABS: Glucose,Whole Blood 94 mg/dL (70-110)
[2023-10-20 07:13] LABS: Glucose,Whole Blood 90 mg/dL (70-110)
[2023-10-20] MEDS: METOPROLOL SUCCINATE (ER) 100 MG TAB.ER.24H PO SCH ×2 (07:54→20:36)
[2023-10-20] MEDS: RIVAROXABAN 20 MG TAB PO SCH (07:54)
[2023-10-20] MEDS: ASPIRIN 81 MG PO SCH (07:55)
[2023-10-20] MEDS: DILTIAZEM DRIP BOLUS FROM BAG 1 MG SOLN IV ONE (08:19)
[2023-10-20] MEDS: DILTIAZEM 125 MG in SODIUM CHLORIDE 0.9% 100 ML IV SCH (08:19)
[2023-10-20] MEDS: ONDANSETRON 4 MG/2 ML VIAL IVP STA (08:31)
[2023-10-20] MEDS: MORPHINE SULFATE 4 MG/ML SYRINGE IV PRN (09:59)
--- NOTE | 2023-10-20 11:23 | P.CRDCN ---
History of Present Illness Consult date: 10/20/23 History of present illness: Patient is a 68-year-old male with persistent Afib with RVR, HTN, and diabetes with complaints of epigastric pain since Friday afternoon. He endorses vomiting on Friday10/18/2023 along with a cramping pain 10. He went to [place] where they performed a CT thorax, abdomen, and pelvis with contrast that showed trace pericardial and pleural effusions, moderate coronary artery calcifications, and moderate atherosclerotic calcifications of the abdominal aorta without aneurysm. They also informed him that he had elevated troponins a nd that he should return to [facility] as he was discharged from here. Previously, he had an ablation for Afib on 10/14/2023 and a cardioversion on 10/16/2023, both with Dr. Riggins. He states that after both procedures he remained in Afib with RVR. He spontaneously returned to [facility] on Friday and was discharged on Friday10/17/2023. 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 He is maintained on Xarelto 20mg daily, losartan 25mg daily, metoprolol succinate 100mg BID. Review of Systems General: Denies fever, chills, weight changes. CV: Endorses palpitations, chest pain at the epigastric region. Resp: Denies SOB and cough. GI: Endorses epigastric pain, nausea, vomiting; denies diarrhea, constipation, hematochezia, melena. : Denies hematuria, dysuria, frequency, urgency. MSK: Denies myalgias. Extremities: Denies edema. Neuro: Denies headache, lightheadedness. Past Medical History Past Medical History: Atrial Fibrillation, Diabetes Mellitus, Hypertension History of Any Multi-Drug Resistant Organisms: None Reported Past Surgical History: Ablation, Back Surgery, Cholecystectomy Additional Past Surgical History / Comment(s): sinus sx Past Anesthesia/Blood Transfusion Reactions: Postoperative Nausea & Vomiting (P ONV) Additional Past Anesthesia/Blood Transfusion Reaction / Comment(s): usually have antinausea meds with anesthesia Past Psychological History: No Psychological Hx Reported Smoking Status: Former smoker Past Alcohol Use History: None Reported Past Drug Use History: None Reported - Past Family History Father Family Medical History: Chest Pain / Angina Medications and Allergies Home Medications Medication Instructions Recorded Confirmed Type Rivaroxaban [Xarelto] 20 mg PO DAILY 10/31/18 10/20/23 History Losartan [Cozaar] 25 mg PO DAILY 10/20/23 10/20/23 History Metoprolol Tartrate [Lopressor] 100 mg PO BID 10/20/23 10/20/23 History glipiZIDE [glipiZIDE ER] 10 mg PO DAILY 10/20/23 10/20/23 History tiZANidine [Zanaflex] 4 mg PO BID PRN 10/20/23 10/20/23 History Allergies Allergy/AdvReac Type Severity Reaction Status Date / Time Penicillins AdvReac Nausea & Verified 10/20/23 09:29 Vomiting Bgeqent-BTK-FoJ Reductase AdvReac Unknown Verified 10/20/23 09:29 Inhibitor [Xlkpyie-Tvh-Ckh Reductase Inhibitor] tramadol AdvReac Nausea & Verified 10/20/23 09:29 Vomiting Physical Exam Vitals: Vital Signs Temp Pulse Pulse Resp BP BP Pulse Ox 10/20/23 08:03 175/95 10/20/23 07:53 97.5 F L 137 H 18 173/113 98 10/20/23 03:02 97.4 F L 76 18 163/94 98 10/20/23 02:00 18 10/20/23 01:46 97.7 F 86 18 163/94 97 10/20/23 01:15 97.9 F 86 18 146/89 99 10/20/23 00:06 81 18 142/90 98 10/19/23 20:12 98 F 83 18 160/91 98 Intake and Output 10/19/23 10/20/23 10/20/23 22:59 06:59 14:59 Output Total 0 Balance 0 Output: Urine 0 Other: Voiding Method Toilet Weight 83.007 kg 83.4 kg Vitals: Afib with RVR (144bpm). General: No acute distress. Head: Atraumatic. CV: Irregular rhythm, tachycardia. Lungs: Bilateral breath sounds present. Abdomen: Soft. TTP epigastric. Extremities: No edema present. Results 10/19/23 20:25 10/19/23 20:25 Cardiac Enzymes 10/19/23 10/19/23 10/20/23 Range/Units 20:19 20:25 03:33 AST 34 (17-59) U/L Troponin I 0.206 H* 0.202 H* (0.000-0.034) ng/mL 10/20/23 Range/Units 06:25 AST (17-59) U/L Troponin I 0.212 H* (0.000-0.034) ng/mL Coagulation 10/19/23 Range/Units 20:25 PT 12.9 H (10.0-12.5) sec APTT 28.8 (22.0-30.0) sec CBC 10/19/23 Range/Units 20:25 WBC 8.2 (3.8-10.6) k/uL RBC 4.31 (4.30-5.90) m/uL Hgb 14.4 (13.0-17.5) gm/dL Hct 42.0 (39.0-53.0) % Plt Count 221 (150-450) k/uL Comprehensive Metabolic Panel 10/19/23 Range/Units 20:25 Sodium 140 (137-145) mmol/L Potassium 4.2 (3.5-5.1) mmol/L Chloride 109 H (98-107) mmol/L Carbon Dioxide 22 (22-30) mmol/L BUN 16 (9-20) mg/dL Creatinine 0.76 (0.66-1.25) mg/dL Glucose 83 (74-99) mg/dL Calcium 9.1 (8.4-10.2) mg/dL AST 34 (17-59) U/L ALT 24 (4-49) U/L Alkaline Phosphatase 63 (38-126) U/L Total Protein 7.6 (6.3-8.2) g/dL Albumin 4.4 (3.5-5.0) g/dL Current Medications Generic Name Dose Route Start Last Admin Trade Name Freq PRN Reason Stop Dose Admin Aspirin 81 mg 10/20/23 09:00 10/20/23 07:55 Aspirin 81 Mg PO 81 mg DAILY MÓNICA Administration Atorvastatin Calcium 80 mg 10/20/23 21:00 Atorvastatin 80 Mg Tab PO HS [facility] Diltiazem HCl 125 mg/ Sodium 125 mls @ 5 mls/hr 10/20/23 08:00 10/20/23 08:19 Chloride IV 5 mg/hr .Q24H MÓNICA 5 mls/hr Administration 5 MG/HR Metoprolol Succinate 100 mg 10/20/23 21:00 Metoprolol Succinate (Er) 100 Mg Tab.Er.24h PO BID MÓNICA Naloxone HCl 0.2 mg 10/20/23 00:20 Naloxone 0.4 Mg/Ml 1 Ml Vial IV Q2M PRN Opioid Reversal Rivaroxaban 20 mg 10/20/23 09:00 10/20/23 07:54 Rivaroxaban 20 Mg Tab PO 20 mg DAILY MÓNICA Administration Protocol Intake and Output 10/19/23 10/20/23 10/20/23 22:59 06:59 14:59 Output Total 0 Balance 0 Output: Urine 0 Other: Voiding Method Toilet Weight 83.007 kg 83.4 kg 10/19/23 20:25 10/19/23 20:25 Assessment and Plan Assessment: 1. Persistent Afib with RVR. Maintained on Xarelto 20mg daily and metoprolol 100mg BID. 2. Elevated troponins. Likely related to recent ablation and cardioversion. No ischemic changes present on EKG. 3. HTN. Maintained on losartan. 4. Diabetes. Maintained on glipizide 10mg daily. Plan: 1. Obtain 2D echo stat. 2. Cardizem 10mg IV once. 3. Continue Xarelto 20mg daily. Thank you for the consultation. We will continue to follow him during his hospital stay.
[2023-10-20] MEDS: MAG HYDROX/AL HYDROX/SIMETH 30 ML, HYOSCYAMINE ELIXIR 10 ML, LIDOCAINE VISCOUS 2% 10 ML PO ONE (11:24)
[2023-10-20] MEDS: METOPROLOL SUCCINATE (ER) 50 MG TAB.ER.24H PO STA (11:28)
[2023-10-20] MEDS: ATORVASTATIN 80 MG TAB ONE (11:28)
[2023-10-20 11:31] LABS: Glucose,Whole Blood 227 mg/dL (70-110)
[2023-10-20] MEDS: ONDANSETRON 4 MG/2 ML VIAL ONE (11:31)
[2023-10-20] MEDS ORDERED: PROCHLORPERAZINE INJ 10 MG/2 ML VIAL IVP PRN (11:36)
[2023-10-20] MEDS ORDERED: DEXTROSE 50% SYRINGE 50 ML IVP PRN ×2 (11:39)
--- NOTE | 2023-10-20 11:53 | P.PN ---
Subjective Progress Note Date: 10/20/23 Hospital course: Patient is a pleasant 68-year-old male with a past medical history of chronic persistent atrial fibrillation on anticoagulation with Xarelto, type II aij-ewyvxtx-kxdejmkoc diabetes mellitus, and hypertension. Patient recently underwent cardioversion x 2 with ablation on 10/14/2023, this was reportedly unsuccessful as patient remained in atrial fibrillation. Since procedure patient and family at bedside report intractable nausea and vomiting with severe epigastric pain. Patient returned to the emergency department on 10/11/2023 and was informed that his CT scan revealed a mildly inflamed esophagus and he was discharged home. Patient reports pain returned 10 out of 10 after discharge with persistent nausea and vomiting so they went to [facility] emergency department where patient was found to have an elevated troponin and transferred back to our facility for evaluation by correctional cook. Upon arrival to our facility patient in sinus mechanism with occasional PVC with no noted T wave or ST abnormalities showing no signs of acute ischemia upon personal review and interpretation. Labs upon arrival to our facility were also completed and reviewed. CBC unremarkable. Coagulation profile showing elevated PT of 12.9 and INR of 1.2. BMP showing mild hyperchloremia with chloride of 109 otherwise normal findings. Blood glucose 83. Liver profile showing elevated total bili of 1.5 otherwise normal findings. Initial troponin 0.206. Patient was admitted under our services with consultation to cardiology. Short ly after admission patient returned to atrial fibrillation with RVR. He was started on a Cardizem infusion. Troponins were trended and flat at 0.206, 0.202, and 0.212. Patient with persistent epigastric pain/tenderness and intractable nausea and vomiting. On evaluation patient significantly tender to mid epigastric region. He does report history of cholecystectomy. Patient appears acutely ill despite administration of morphine and Zofran. Additional medications ordered at this time. Consult placed to general surgeon for evaluation and discussed case in detail. Physical exam: Patient was seen and fully evaluated at bedside this morning. Patient appears acutely ill, mildly diaphoretic with intractable nausea and vomiting despite administration of Zofran. Patient dry heaving and emesis basin at time of assessment. Patient reporting 10 out of 10 epigastric pain despite recent administration of morphine. Patient describes pain as sharp and persistent and was significantly tender upon palpation to epigastric region. Vital signs reviewed and stable. General: Nontoxic, no distress and appears stated age. Derm: Skin warm and dry, normal coloration for ethnicity. Head: Atraumatic, normocephalic and symmetric. Eyes: EOM's intact, no lid lag, and anicteric sclera Mouth: no lip lesions, mucus membranes moist Cardiovascular: Irregularly irregular, positive posterior tibial pulses bilaterally, and cap refill < 2 seconds. Lungs: Respirations even, regular, and unlabored on room air. Lungs CTA bilaterally, no rhonchi, no rales, no wheezing, and no accessory muscle usage. Abdominal: soft, significant tenderness reported upon palpation to epigastric region Ext: ROM intact. No gross muscle atrophy, no edema, no contractures Neuro: Speech clear, face symmetrical and CN II-XII grossly intact with no noted focal neuro deficits Psych: Alert and oriented to person, place, time, and situation. Appropriate and pleasant affect. Assessment and Plan of Care: Epigastric pain accompanied by intractable nausea and vomiting -Consult placed to general surgeon for evaluation. Patient will likely need CT angio abdomen and pelvis. Awaiting surgery to evaluate and further recommendations. -Order placed for GI cocktail -Patient made n.p.o. pending evaluation by general surgery. -Order placed for Compazine 10 mg IVP every 6 hours as needed for nausea or vomiting -Order placed for morphine 4 mg IVP every 4 hours as needed for pain. -Will place patient on gentle IV fluid hydration with lactated Ringer's at 75 cc/h while NPO. -Patient received Xarelto this morning, if surgical intervention is needed, will need to hold. Elevated troponins Atrial fibrillation with RVR Hypertension -Troponins trended and flat at 0.206, 0.202, and 0.212. Elevated troponins likely secondary to recent cardioversion x 2 and ablation. -Cardiology following. -Continue cardiac medication regimen with Xarelto 20 mg daily, metoprolol 150 mg twice daily, losartan 25 mg daily, and atorvastatin 80 mg nightly. -Continue Cardizem infusion at 5 mg/h and titrate up to 15 mg/h for optimal rate control of 80 to 100 bpm. Diabetes mellitus with hyperglycemia -Hold glipizide and patient placed on glycemic protocol with NovoLog sliding scale. Currently blood glucose 227. Vital Signs reviewed. Blood pressure elevated at 173/113, heart rate 137, respiratory rate 18, temp 97.5 F, and SpO2 of 98% on room air. CODE STATUS: Full code DVT prophylaxis: Xarelto Discussed with: Patient, patient's family at bedside, RN, and general surgeon Anticipated discharge date: Pending clinical course Anticipated discharge place: Patient was seen independently by Nurse Pracitioner. This document was prepared using [employer] dictation software. Please allow for errors in metal bonder, while rare they do occur. Francisco Álvarez INFORMATION SYSTEMS ANALYST rendered care for this patient independently, reviewed the findings and plan as documented in the note above. I did not physically speak with or examine the patient on this date. Objective - Vital Signs Vital signs: Vital Signs Temp 97.5 F L 10/20/23 07:53 Pulse 137 H 10/20/23 07:53 Resp 18 10/20/23 07:53 BP 175/95 10/20/23 08:03 Pulse Ox 98 10/20/23 07:53 FiO2 Intake & Output 10/19/23 10/20/23 10/20/23 18:59 06:59 18:59 Output Total 0 Balance 0 Weight 83.4 kg Output: Urine 0 Other: Voiding Method Toilet - Labs CBC & Chem 7: 10/20/23 12:05 10/20/23 12:05 Labs: Abnormal Lab Results - Last 24 Hours (Table) 10/19/23 10/19/23 10/19/23 Range/Units 20:19 20:25 20:25 PT 12.9 H (10.0-12.5) sec INR 1.2 H (<1.2) Chloride 109 H (98-107) mmol/L Total Bilirubin 1.5 H (0.2-1.3) mg/dL Troponin I 0.206 H* (0.000-0.034) ng/mL 10/20/23 10/20/23 Range/Units 03:33 06:25 PT (10.0-12.5) sec INR (<1.2) Chloride (98-107) mmol/L Total Bilirubin (0.2-1.3) mg/dL Troponin I 0.202 H* 0.212 H* (0.000-0.034) ng/mL
[2023-10-20] MEDS: MORPHINE SULFATE 4 MG/ML SYRINGE ONE (12:04)
[2023-10-20] MEDS: ASPIRIN 81 MG ONE (12:04)
[2023-10-20] MEDS: NITROGLYCERIN SL TABS 0.4 MG TAB SUBLINGUAL ONE (12:04)
[2023-10-20] MEDS: ASPIRIN 325 MG TAB ONE (12:04)
[2023-10-20 12:21] LABS: HCT 48.6 % (39.0-53.0); HGB 16.3 gm/dL (13.0-17.5); MCH 33.6 pg (25.0-35.0); MCHC 33.6 g/dL (31.0-37.0); MCV 99.9 fL (80.0-100.0); Mean Platelet Volume 7.2; Platelet Count 216 k/uL (150-450); RBC 4.86 m/uL (4.30-5.90); RDW 13.1 % (11.5-15.5); WBC 7.7 k/uL (3.8-10.6)
[2023-10-20] MEDS: PROCHLORPERAZINE INJ 10 MG/2 ML VIAL IVP STA (12:29)
[2023-10-20] MEDS: INSULIN ASPART (NovoLOG) 100 UNIT/ML VIAL SQ SCH (12:31)
[2023-10-20 12:34] LABS: ALT 28 U/L (4-49); AST 29 U/L (17-59); African American GFR (CKD) >90 (>60 ml/min/1.73 sqM); Albumin 4.7 g/dL (3.5-5.0); Alkaline Phosphatase 104 U/L (38-126); Anion Gap 10 mmol/L; Blood Urea Nitrogen 14 mg/dL (9-20); Calcium 8.6 mg/dL (8.4-10.2); Carbon Dioxide 21 mmol/L (22-30); Chloride 104 mmol/L (98-107); Glucose 210 mg/dL (74-99); Magnesium 1.9 mg/dL (1.6-2.3); Non-African American GFR(CKD) >90 (>60 ml/min/1.73 sqM); Sodium 135 mmol/L (137-145); Total Bilirubin 1.4 mg/dL (0.2-1.3); Total Protein 7.9 g/dL (6.3-8.2)
--- NOTE | 2023-10-20 12:38 | CA ---
Transthoracic Echo Report Name: Cayetano Ho Age: 68 Gender: M : 1955 Exam Date: 10/20/2023 08:40 Exam Location: [facility] Ht (in): 68 Wt (lb): 183 Ordering Physician: Zheng Overton MD ([id number]) Attending/Referring Phys: Tian AGUIRRE Wedding Coordinator Carmela Loaiza RDCS Procedure CPT: Indications: EPIGASTRIC PAIN, + TROPONIN Cardiac Hx: Technical Quality: Fair Contrast 1: Total Dose (mL): Contrast 2: Total Dose (mL): MEASUREMENTS (Male / Female) Normal Values 2D ECHO LV Diastolic Diameter PLAX 4.4 cm 4.2 - 5.9 / 3.9 - 5.3 cm LV Systolic Diameter PLAX 2.7 cm IVS Diastolic Thickness 1.6 cm 0.6 - 1.0 / 0.6 - 0.9 cm LVPW Diastolic Thickness 1.2 cm 0.6 - 1.0 / 0.6 - 0.9 cm LV Relative Wall Thickness 0.6 RV Internal Dim ED PLAX 2.9 cm LV Diastolic Volume MOD BP 56.3 cm??? 67 - 155 / 56 - 104 cm??? LV Systolic Volume MOD BP 31.5 cm??? 22 - 58 / 19 - 49 cm??? LV Ejection Fraction MOD BP 44.1 % >= 55 % LV Diastolic Volume MOD 4C 61.3 cm??? LV Systolic Volume MOD 4C 26.5 cm??? LV Ejection Fraction MOD 4C 56.7 % LV Diastolic Length 4C 6.4 cm LV Systolic Length 4C 5.0 cm LV Diastolic Volume MOD 2C 49.2 cm??? LV Systolic Volume MOD 2C 33.2 cm??? LV Ejection Fraction MOD 2C 32.5 % LV Diastolic Length 2C 6.9 cm LV Systolic Length 2C 5.6 cm LA Volume 66.5 cm??? 18 - 58 / 22 - 52 cm??? LA Volume Index 33.0 cm???/m??? 16 - 28 cm???/m??? M-MODE Aortic Root Diameter MM 3.6 cm LA Systolic Diameter MM 4.7 cm LA Ao Ratio MM 1.3 DOPPLER AV Peak Velocity 110.3 cm/s AV Peak Gradient 4.9 mmHg AV Mean Velocity 74.2 cm/s AV Mean Gradient 2.5 mmHg AV Velocity Time Integral 18.9 cm LVOT Peak Velocity 81.0 cm/s LVOT Peak Gradient 2.6 mmHg LVOT Velocity Time Integral 13.7 cm MV Area PHT 4.6 cm??? Mitral E Point Velocity 84.7 cm/s Mitral A Point Velocity 0.5 cm/s Mitral E to A Ratio 155.2 MV Deceleration Time 164.7 ms MV E' Velocity 10.0 cm/s Mitral E to MV E' Ratio 8.5 TR Peak Velocity 187.7 cm/s TR Peak Gradient 14.1 mmHg Right Atrial Pressure 20.0 mmHg Pulmonary Artery Systolic Pressu 34.1 mmHg Right Ventricular Systolic Press 26.6 mmHg FINDINGS Left Ventricle Moderately increased left ventricular wall thickness. Left ventricular cavity size normal. Normal left ventricular systolic function with no obvious regional wall motion abnormalities. Left ventricular ejection fraction is estimated at 55 %. Right Ventricle Normal right ventricular size and function. Right ventricular systolic pressure within normal limits. Right Atrium Normal right atrial size. Left Atrium Mildly increased left atrial volume. Mildly increased left atrial area. Mitral Valve Structurally normal mitral valve. Mitral valve thickened. Czlp-wt-ihibzbik mitral regurgitation. Aortic Valve Trileaflet aortic valve. No aortic valve stenosis or regurgitation. Aortic valve sclerosis. Tricuspid Valve Structurally normal tricuspid valve. Mild tricuspid regurgitation. Pulmonic Valve Structurally normal pulmonic valve. Trace pulmonic regurgitation. Pericardium No pericardial effusion. Aorta Normal size aortic root and proximal ascending aorta. CONCLUSIONS Left ventricular ejection fraction 55% Moderately increased left ventricular wall thickness RVSP 26 Arpn-lp-doymiewc mitral regurgitation Mild tricuspid regurgitation Previewed by: Dr. Alpesh Hill DO (Electronically Signed) Final Date: 20 October 2023 12:37
[2023-10-20] MEDS: LACTATED RINGERS 1,000 ML IV SCH (12:42)
[2023-10-20] MEDS: LACTATED RINGERS 1,000 ML IV ONE ×2 (13:08→14:02)
--- NOTE | 2023-10-20 14:16 | CT ---
EXAMINATION TYPE: CT angio abdomen pelvis DATE OF EXAM: 10/20/2023 1:59 PM COMPARISON: 10/19/2023 HISTORY: Rule out mesenteric ischemia. CT DLP: 1455.1 mGycm Automated exposure control for dose reduction was used. TECHNIQUE: Performed with IV Contrast, patient injected with 100 mL of Isovue 300. . FINDINGS: Bibasilar consolidation. Underlying emphysematous change. Tiny pericardial effusion. Calcification of the coronary arteries and aortic root. Mild gynecomastia.. Mild cardiomegaly. Reflux of the contrast in the IVC and hepatic veins can be seen with tricuspid disease or right heart elevated pressures. Postcholecystectomy changes. Liver reduced attenuation correlate for hepatic steatosis. 4 focal area of fatty infiltration near the falciform ligament. There is bilateral adrenal gland thickening possibly in the basis of hyperplasia or benign adenoma. Spleen homogeneous. Small hiatal hernia. Appendix normal. Bowel gas pattern nonspecific with no obstruction. Changes of diverticulosis. There is an area of wall thickening involving the right colon which is somewhat localized reference image 9 2 series 501. This could be transient and related to incomplete distention rather than colitis or muc osal lesion correlate clinically. Bladder distends normally. Prostate enlarged at 4.8 cm. Hypertrophic and degenerative changes of the spine. Postsurgical changes suggestive of laminectomy. Aorta of normal caliber with no evidence of aneurysm. Visualized celiac plexus, SMA and REBEKAH enhance n ormally. There is some limitation due to artifact from the patient's surgical change and metal artifa ct of the vertebral column. No free fluid. No free air. Bilateral hypertrophic hip arthropathy. There are punctate bilateral renal calculi. Trace amount of free fluid in the pelvis. IMPRESSION: 1. The mesenteric vasculature is patent. No significant stenosis. 2. Bilateral punctate renal calculi 3. Diverticulosis with no CT evidence of diverticulitis. 4. Reflux of contrast into the IVC and hepatic veins often associated with tricuspid disease or eleva get right heart pressures. Site #5 There is a region of wall thickening of the right colon with no de finite inflammatory changes. Could be transient related to peristalsis and incomplete distention. If there is concern for mild colitis or mucosal lesion correlate with direct visualization as clinically warranted.
--- NOTE | 2023-10-20 15:14 | P.GSCN ---
History of Present Illness Consult date: 10/20/23 Reason for Consult: Epigastric Abdominal Pain History of present illness: Patient is a pleasant 68-year-old male with a past medical history of chronic persistent atrial fibrillation on anticoagulation with Xarelto, type II koz-xevypxv-vvuyjtkzy diabetes mellitus, and hypertension, and polycythemia vera. Patient recently underwent cardioversion x 2 with ablation on 10/14/2023, this was reportedly unsuccessful as patient remained in atrial fibrillation. Since procedure patient and family at bedside report intractable nausea and vo miting with severe epigastric pain. Patient returned to the emergency department on 10/11/2023 and was informed that his CT scan revealed a mildly inflamed esophagus and he was discharged home. Patient reports pain returned 10 out of 10 after discharge with persistent nausea and vomiting so they went to [facility] emergency department where patient was found to have an elevated troponin and transferred back to our facility for evaluation by line locator. Review of Systems - Constitutional Reports lethargy, Reports poor appetite - Cardiovascular Reports chest pain - Respiratory Reports as per HPI - Gastrointestinal Reports abdominal pain, Reports belching, Reports indigestion - Musculoskeletal Reports as per HPI Past Medical History Past Medical History: Atrial Fibrillation, Diabetes Mellitus, Hypertension History of Any Multi-Drug Resistant Organisms: None Reported Past Surgical History: Ablation, Back Surgery, Cholecystectomy Additional Past Surgical History / Comment(s): sinus sx Past Anesthesia/Blood Transfusion Reactions: Postoperative Nausea & Vomiting (PONV) Additional Past Anesthesia/Blood Transfusion Reaction / Comm: usually have antinausea meds with anesthesia Past Psychological History: No Psychological Hx Reported Smoking Status: Former smoker Past Alcohol Use History: None Reported Past Drug Use History: None Reported - Past Family History Father Family Medical History: Chest Pain / Angina Medications and Allergies Home Medications Medication Instructions Recorded Confirmed Type Rivaroxaban [Xarelto] 20 mg PO DAILY 10/31/18 10/20/23 History Losartan [Cozaar] 25 mg PO DAILY 10/20/23 10/20/23 History Metoprolol Tartrate [Lopressor] 100 mg PO BID 10/20/23 10/20/23 History glipiZIDE [glipiZIDE ER] 10 mg PO DAILY 10/20/23 10/20/23 History tiZANidine [Zanaflex] 4 mg PO BID PRN 10/20/23 10/20/23 History Allergies Allergy/AdvReac Type Severity Reaction Status Date / Time Penicillins AdvReac Nausea & Verified 10/20/23 09:29 Vomiting Buxvsqv-JTO-SlX Reductase AdvReac Unknown Verified 10/20/23 09:29 Inhibitor [Panznyp-Udq-Fgp Reductase Inhibitor] tramadol AdvReac Nausea & Verified 10/20/23 09:29 Vomiting Surgical - Exam Osteopathic Statement: *. No significant issues noted on an osteopathic structural exam other than those noted in the History and Physical/Consult. Vital Signs Temp Pulse Resp BP Pulse Ox 98 F 83 18 160/91 98 10/19/23 20:12 10/19/23 20:12 10/19/23 20:12 10/19/23 20:12 10/19/23 20:12 - General Gen: nauseated, weak heent: atraumatic, normocephalic, eyes perrla, oral mucosa appears dry cv: rrr pul: non labored breathing abd: soft, tender to palpation in epigastric region, no guarding, not peritoneal ext: b/l trace edema in lower extremities Results - Labs 10/20/23 12:05 10/20/23 12:05 Abnormal Lab Results - Last 24 Hours (Table) 10/19/23 10/19/23 10/19/23 Range/Units 20:19 20:25 20:25 PT 12.9 H (10.0-12.5) sec INR 1.2 H (<1.2) Sodium (137-145) mmol/L Chloride 109 H (98-107) mmol/L Carbon Dioxide (22-30) mmol/L Glucose (74-99) mg/dL POC Glucose (mg/dL) (70-110) mg/dL Plasma Lactic Acid Eugene (0.7-2.0) mmol/L Total Bilirubin 1.5 H (0.2-1.3) mg/dL Troponin I 0.206 H* (0.000-0.034) ng/mL 10/20/23 10/20/23 10/20/23 Range/Units 03:33 06:25 11:28 PT (10.0-12.5) sec INR (<1.2) Sodium (137-145) mmol/L Chloride (98-107) mmol/L Carbon Dioxide (22-30) mmol/L Glucose (74-99) mg/dL POC Glucose (mg/dL) 227 H (70-110) mg/dL Plasma Lactic Acid Eugene (0.7-2.0) mmol/L Total Bilirubin (0.2-1.3) mg/dL Troponin I 0.202 H* 0.212 H* (0.000-0.034) ng/mL 10/20/23 10/20/23 Range/Units 12:05 12:05 PT (10.0-12.5) sec INR (<1.2) Sodium 135 L (137-145) mmol/L Chloride (98-107) mmol/L Carbon Dioxide 21 L (22-30) mmol/L Glucose 210 H (74-99) mg/dL POC Glucose (mg/dL) (70-110) mg/dL Plasma Lactic Acid Eugene 3.3 H* (0.7-2.0) mmol/L Total Bilirubin 1.4 H (0.2-1.3) mg/dL Troponin I (0.000-0.034) ng/mL Diabetes panel 10/19/23 10/20/23 Range/Units 20:25 12:05 Sodium 140 135 L (137-145) mmol/L Potassium 4.2 4.0 (3.5-5.1) mmol/L Chloride 109 H 104 (98-107) mmol/L Carbon Dioxide 22 21 L (22-30) mmol/L BUN 16 14 (9-20) mg/dL Creatinine 0.76 0.68 (0.66-1.25) mg/dL Glucose 83 210 H (74-99) mg/dL Calcium 9.1 8.6 (8.4-10.2) mg/dL AST 34 29 (17-59) U/L ALT 24 28 (4-49) U/L Alkaline Phosphatase 63 104 (38-126) U/L Total Protein 7.6 7.9 (6.3-8.2) g/dL Albumin 4.4 4.7 (3.5-5.0) g/dL Calcium panel 10/19/23 10/20/23 Range/Units 20:25 12:05 Calcium 9.1 8.6 (8.4-10.2) mg/dL Albumin 4.4 4.7 (3.5-5.0) g/dL Pituitary panel 10/19/23 10/20/23 Range/Units 20:25 12:05 Sodium 140 135 L (137-145) mmol/L Potassium 4.2 4.0 (3.5-5.1) mmol/L Chloride 109 H 104 (98-107) mmol/L Carbon Dioxide 22 21 L (22-30) mmol/L BUN 16 14 (9-20) mg/dL Creatinine 0.76 0.68 (0.66-1.25) mg/dL Glucose 83 210 H (74-99) mg/dL Calcium 9.1 8.6 (8.4-10.2) mg/dL Adrenal panel 10/19/23 10/20/23 Range/Units 20:25 12:05 Sodium 140 135 L (137-145) mmol/L Potassium 4.2 4.0 (3.5-5.1) mmol/L Chloride 109 H 104 (98-107) mmol/L Carbon Dioxide 22 21 L (22-30) mmol/L BUN 16 14 (9-20) mg/dL Creatinine 0.76 0.68 (0.66-1.25) mg/dL Glucose 83 210 H (74-99) mg/dL Calcium 9.1 8.6 (8.4-10.2) mg/dL Total Bilirubin 1.5 H 1.4 H (0.2-1.3) mg/dL AST 34 29 (17-59) U/L ALT 24 28 (4-49) U/L Alkaline Phosphatase 63 104 (38-126) U/L Total Protein 7.6 7.9 (6.3-8.2) g/dL Albumin 4.4 4.7 (3.5-5.0) g/dL Assessment and Plan Assessment: 68 yo male w/ epigastric pain -CTA abd/pelv reveals diverticulosis with no signs of ischemia -Lactic acid 3.1, continue fluid resuscitation -PPI bid -attempt malox/lidocaine solutions -will schedule for EGD tomorow afternoon Time with Patient: Greater than 30
[2023-10-20 16:17] LABS: Glucose,Whole Blood 203 mg/dL (70-110)
[2023-10-20 20:22] LABS: Glucose,Whole Blood 247 mg/dL (70-110)
[2023-10-20] MEDS: ATORVASTATIN 80 MG TAB PO SCH (20:36)
[2023-10-20] MEDS ORDERED: METOPROLOL TARTRATE 50 MG TAB PO SCH (21:00)
[2023-10-20] MEDS ORDERED: METOPROLOL SUCCINATE (ER) 100 MG TAB.ER.24H PO SCH (21:00)
[2023-10-21 00:17] LABS: Glucose,Whole Blood 187 mg/dL (70-110)
[2023-10-21] MEDS: PANTOPRAZOLE 40 MG/10 ML VIAL IVP SCH (00:31)
[2023-10-21 06:15] LABS: Glucose,Whole Blood 110 mg/dL (70-110)
--- NOTE | 2023-10-21 08:07 | P.CRDCN ---
History of Present Illness History of present illness: This is Dr. Riggins dictating a consult on this patient The patient was interviewed and examined IMPRESSION / ASSESSMENT: Patient seen on 19 October initially on this admission Paroxysmal atrial fibrillation with RVR post A-fib ablation with pulmonary vein isolation This is not an uncommon scenario in the first 6 to 8 weeks post ablation. He converted to sinus rhythm on his own on Friday at which point I discharged him He will continue to have episodes of atrial fibrillation for the next several weeks Epigastric discomfort-unclear etiology. While the CT scan of the abdomen suggests thickening of the colon wall, this could be as a result of incomplete distention and could be artifactual, as stated in the report Past history, many years back, of a gastric ulcer. Status post cholecystectomy in the past Abnormal troponins are universal finding after a cardiac ablation. They typically have a flat trend and do not represent an acute myocardial infarction. This is post ablation elevated troponins. This was explained to the family. THIS DOES NOT REPRESENT A TYPE 1 ACUTE MYOCARDIAL INFARCTION AND SHOULD NEITHER BE CODED NOR BILLED SUCH The daughter raised the question of atrial esophageal fistula after a Google search and this patient has had numerous CT scans over the last 48 hours with a generous dose of radiation and IV dye, pursuing a diagnosis where an the clinical symptoms do NOT fit. The patient has had frequent hiccups followed by epigastric discomfort nausea. He has had no fever, no elevated white count no pneumonitis no strokelike symptoms. This could be a result post anesthesia, it could be a post ablation result with ablation of the autonomic ganglia related to the cardiac structures or an unrelated, incidental finding. In any case the patient's symptomatology are not consistent with an atrial esophageal fistula and none has been found after several CT scans over the weekend Most importantly, his A-fib ablation involved esophageal deflection as well as esophageal temperature monitoring to keep the esophagus a safe distance away from the ablation catheter, to avoid atrial esophageal fistula development. This is per our A-fib ablation protocol, which we have followed since 2010. His symptomatology, presentation and subsequently numerous CT scans with IV contrast dye are NOT consistent with the diagnosis of atrial esophageal fistula. This was explained to the patient and his family. Past history of polycythemia and he undergoes phlebotomy when his hemoglobin is greater than 17. Recent phlebotomy about a month back PLAN: Do not stop Xarelto. Increased risk of thromboembolism post AF ablation. He must remain on uninterrupted Xarelto Discussed with Dr. Birmingham. We will treat him with IV Protonix 40 mg every 12 clear liquid diet IV fluids. Hold off on any upper endoscopy as discussed with Dr. Birmingham Rate control and anticoagulation for atrial fibrillation. No antiarrhythmic drugs. He has failed sotalol and I believe the flecainide that I gave him last week was proarrhythmic Continue atorvastatin 80 mg p.o. daily. Patient has calcific atherosclerotic disease in multiple vascular beds as expected in a diabetic Continue Cozaar 25 mg p.o. daily for hypertension management I have increased the dose of metoprolol succinate 250 mg twice daily However I will continue IV Cardizem until the oral medications take full effect Update: On IV Protonix and clear liquid diet there has been a dramatic improvement in his epigastric discomfort and abdominal pain. I examined him this morning on the and there is no abdominal tenderness and there is no abdominal pain. Patient is feeling well HPI This is a 68-year-old male patient who has hypertension type 2 diabetes atrial fibrillation, persistent that has failed sotalol. He underwent successful pulmonary vein isolation last week. Subsequently he developed postprocedure atrial fibrillation with RVR and was treated with oral flecainide along with beta-blockers and electrical cardioversion. He had immediate recurrence of atrial fibrillation post cardioversion and therefore flecainide was discontinued. Following that within 12 hours he spontaneously converted to sin us rhythm and he was discharged home on beta-blockers and anticoagulation and was instructed not to stop Xarelto At home he had hiccups for almost 12 hours. Subsequently he started having upper abdominal discomfort. A CAT scan was performed here but I do not have the report since the computers were down. He was discharged home He continued to have episodes of hiccups and upper abdominal discomfort and he was taken to the [place] urgent care facility and [address] He underwent a CT scan once again and there was no evidence for any esophageal abnormalities, certainly no esophageal fistula (his daughter went on the Internet and found this to atrial esophageal fistula after an A-fib ablation and was convinced that he had it!!) He has a past history of type 2 diabetes hypertension cholecystectomy. Most importantly he has had a history of postoperative nausea and vomiting following anesthesia His symptoms include 1. Hiccups for almost 12 to 14 hours over the weekend 2. Epigastric discomfort 3. Nausea and vomiting His troponins were elevated at 0.2, 0.2 and 0.2, flat trend post A-fib ablation/cryoablation He was sent back from the urgent care facility because of abnormal troponins and repeat chest and abdominal CT was performed There is an area of wall thickening of the right colon which could be related to incomplete distention rather than a true pathology/possible diverticulosis After 3-4 CT scans of his chest and abdomen over a period of 48 hours, his renal function is still normal Twelve-lead EKG shows atrial fibrillation with RVR and is having paroxysms of A-fib with RVR ROS: No fever chills or rigors, no cough, phlegm or expectoration, Positive nausea, vomiting, no diarrhea, positive epigastric discomfort no hematuria, dysuria, no musculoskeletal complaints, no strokes or seizures, no skin lesions. EXAMINATION: Pulse rate 100 210 beats a minute afebrile blood pressure 140/93 mmHg Heart sounds are irregular no murmurs Abdomen is soft with epigastric tenderness Reduced breath sounds bilaterally REVIEW OF LABS, ECG & MEDICAL DATA Normal white count, normal hemoglobin Normal platelet count Sodium 135 potassium 4.0, low magnesium of 1.5 Normal renal function tests Normal liver function tests Mildly abnormal troponins with a flat trend at 0.2 x 3 Past Medical History Past Medical History: Atrial Fibrillation, Diabetes Mellitus, Hypertension History of Any Multi-Drug Resistant Organisms: None Reported Past Surgical History: Ablation, Back Surgery, Cholecystectomy Additional Past Surgical History / Comment(s): sinus sx Past Anesthesia/Blood Transfusion Reactions: Postoperative Nausea & Vomiting (PONV) Additional Past Anesthesia/Blood Transfusion Reaction / Comment(s): usually have antinausea meds with anesthesia Past Psychological History: No Psychological Hx Reported Smoking Status: Former smoker Past Alcohol Use History: None Reported Past Drug Use History: None Reported - Past Family History Father Family Medical History: Chest Pain / Angina Medications and Allergies Home Medications Medication Instructions Recorded Confirmed Type Rivaroxaban [Xarelto] 20 mg PO DAILY 10/31/18 10/20/23 History Losartan [Cozaar] 25 mg PO DAILY 10/20/23 10/20/23 History Metoprolol Tartrate [Lopressor] 100 mg PO BID 10/20/23 10/20/23 History glipiZIDE [glipiZIDE ER] 10 mg PO DAILY 10/20/23 10/20/23 History tiZANidine [Zanaflex] 4 mg PO BID PRN 10/20/23 10/20/23 History Allergies Allergy/AdvReac Type Severity Reaction Status Date / Time Penicillins AdvReac Nausea & Verified 10/20/23 09:29 Vomiting Oehshjs-EQA-MkY Reductase AdvReac Unknown Verified 10/20/23 09:29 Inhibitor [Pfzoowz-Nhn-Zsj Reductase Inhibitor] tramadol AdvReac Nausea & Verified 10/20/23 09:29 Vomiting Physical Exam Vitals: Vital Signs Temp Pulse Pulse Resp BP BP Pulse Ox 10/20/23 16:00 97.5 F L 100 18 140/93 96 10/20/23 13:23 18 10/20/23 12:00 97.6 F 104 H 18 152/102 96 10/20/23 08:03 175/95 10/20/23 08:00 137 H 10/20/23 07:53 97.5 F L 137 H 18 173/113 98 10/20/23 03:02 97.4 F L 76 18 163/94 98 10/20/23 02:00 18 10/20/23 01:46 97.7 F 86 18 163/94 97 10/20/23 01:15 97.9 F 86 18 146/89 99 10/20/23 00:06 81 18 142/90 98 10/19/23 20:12 98 F 83 18 160/91 98 Intake and Output 10/20/23 10/20/23 10/20/23 06:59 14:59 22:59 Intake Total 75 Output Total 0 Balance 0 75 Intake: IV 75 Lactated Ringers 1,000 ml 75 @ 75 mls/hr IV .[id number] [facility] Rx#:[id number] Output: Urine 0 Other: Voiding Method Toilet Toilet Weight 83.4 kg Results 10/20/23 12:05 10/20/23 12:05 Cardiac Enzymes 10/19/23 10/19/23 10/20/23 Range/Units 20:19 20:25 03:33 AST 34 (17-59) U/L Troponin I 0.206 H* 0.202 H* (0.000-0.034) ng/mL 10/20/23 10/20/23 Range/Units 06:25 12:05 AST 29 (17-59) U/L Troponin I 0.212 H* (0.000-0.034) ng/mL Coagulation 10/19/23 Range/Units 20:25 PT 12.9 H (10.0-12.5) sec APTT 28.8 (22.0-30.0) sec CBC 10/19/23 10/20/23 Range/Units 20:25 12:05 WBC 8.2 7.7 (3.8-10.6) k/uL RBC 4.31 4.86 (4.30-5.90) m/uL Hgb 14.4 16.3 (13.0-17.5) gm/dL Hct 42.0 48.6 (39.0-53.0) % Plt Count 221 216 (150-450) k/uL Comprehensive Metabolic Panel 10/19/23 10/20/23 Range/Units 20:25 12:05 Sodium 140 135 L (137-145) mmol/L Potassium 4.2 4.0 (3.5-5.1) mmol/L Chloride 109 H 104 (98-107) mmol/L Carbon Dioxide 22 21 L (22-30) mmol/L BUN 16 14 (9-20) mg/dL Creatinine 0.76 0.68 (0.66-1.25) mg/dL Glucose 83 210 H (74-99) mg/dL Calcium 9.1 8.6 (8.4-10.2) mg/dL AST 34 29 (17-59) U/L ALT 24 28 (4-49) U/L Alkaline Phosphatase 63 104 (38-126) U/L Total Protein 7.6 7.9 (6.3-8.2) g/dL Albumin 4.4 4.7 (3.5-5.0) g/dL Current Medications Generic Name Dose Route Start Last Admin Trade Name Freq PRN Reason Stop Dose Admin Atorvastatin Calcium 80 mg 10/20/23 21:00 Atorvastatin 80 Mg Tab PO HS [facility] Dextrose/Water 25 ml 10/20/23 11:39 Dextrose 50% Syringe 50 Ml IVP PER PROTOCOL PRN Hypoglycemia Protocol Dextrose/Water 50 ml 10/20/23 11:39 Dextrose 50% Syringe 50 Ml IVP PER PROTOCOL PRN Hypoglycemia Protocol Diltiazem HCl 125 mg/ Sodium 125 mls @ 5 mls/hr 10/20/23 08:00 10/20/23 08:19 Chloride IV 5 mg/hr .Q24H [facility] 5 mls/hr Administration 5 MG/HR Lactated Ringer's 1,000 mls @ 75 mls/hr 10/20/23 12:15 10/20/23 12:42 Lactated Ringers IV 75 mls/hr .[id number] [facility] Administration Insulin Aspart 0 unit 10/20/23 12:00 10/20/23 18:07 Insulin Aspart (Novolog) 100 Unit/Ml Vial SQ 2 unit Q6H [facility] Administration Protocol Losartan Potassium 25 mg 10/21/23 09:00 Losartan 25 Mg Tab PO DAILY [facility] Metoprolol Succinate 150 mg 10/20/23 21:00 Metoprolol Succinate (Er) 100 Mg Tab.Er.24h PO BID [facility] Morphine Sulfate 4 mg 10/20/23 09:52 10/20/23 18:07 Morphine Sulfate 4 Mg/Ml Syringe IV 4 mg Q4HR PRN Administration Severe Pain (Scale 7 to 10) Naloxone HCl 0.2 mg 10/20/23 00:20 Naloxone 0.4 Mg/Ml 1 Ml Vial IV Q2M PRN Opioid Reversal Pantoprazole Sodium 40 mg 10/20/23 21:00 Pantoprazole 40 Mg/10 Ml Vial IVP BID [facility] Prochlorperazine Edisylate 10 mg 10/20/23 11:36 Prochlorperazine Inj 10 Mg/2 Ml Vial IVP Q6H PRN Nausea Rivaroxaban 20 mg 10/20/23 09:00 10/20/23 07:54 Rivaroxaban 20 Mg Tab PO 20 mg DAILY [facility] Administration Protocol Intake and Output 10/20/23 10/20/23 10/20/23 06:59 14:59 22:59 Intake Total 75 Output Total 0 Balance 0 75 Intake: IV 75 Lactated Ringers 1,000 ml 75 @ 75 mls/hr IV .[id number] [facility] Rx#:[id number] Output: Urine 0 Other: Voiding Method Toilet Toilet Weight 83.4 kg 10/20/23 12:05 10/20/23 12:05
[2023-10-21 08:21] LABS: Basophils # (A) 0.1 k/uL (0-0.2); Basophils % (A) 1 %; Eosinophils # (A) 0.1 k/uL (0-0.7); Eosinophils % (A) 1 %; HCT 44.8 % (39.0-53.0); Lymphocytes # (A) 1.8 k/uL (1.0-4.8); Lymphocytes % (A) 23 %; MCH 32.9 pg (25.0-35.0); MCHC 33.5 g/dL (31.0-37.0); MCV 98.4 fL (80.0-100.0); Monocytes # (A) 0.6 k/uL (0-1.0); Monocytes % (A) 8 %; Neutrophils # (A) 4.8 k/uL (1.3-7.7); Neutrophils % (A) 64 %; Platelet Count 238 k/uL (150-450); RBC 4.56 m/uL (4.30-5.90); RDW 13.1 % (11.5-15.5); WBC 7.5 k/uL (3.8-10.6)
[2023-10-21 08:34] LABS: ALT 20 U/L (4-49); AST 21 U/L (17-59); African American GFR (CKD) >90 (>60 ml/min/1.73 sqM); Albumin 3.6 g/dL (3.5-5.0); Alkaline Phosphatase 76 U/L (38-126); Anion Gap 8 mmol/L; Blood Urea Nitrogen 21 mg/dL (9-20); Calcium 8.7 mg/dL (8.4-10.2); Carbon Dioxide 24 mmol/L (22-30); Chloride 105 mmol/L (98-107); Glucose 95 mg/dL (74-99); Magnesium 2.2 mg/dL (1.6-2.3); Non-African American GFR(CKD) 81 (>60 ml/min/1.73 sqM); Potassium 3.8 mmol/L (3.5-5.1); Sodium 137 mmol/L (137-145); Total Bilirubin 1.2 mg/dL (0.2-1.3); Total Protein 6.6 g/dL (6.3-8.2)
[2023-10-21] MEDS: LOSARTAN 25 MG TAB PO SCH (09:01)
[2023-10-21 11:35] LABS: Glucose,Whole Blood 152 mg/dL (70-110)
--- NOTE | 2023-10-21 12:46 | P.PN ---
Subjective Progress Note Date: 10/21/23 Hospital course: Patient is a pleasant 68-year-old male with a past medical history of chronic persistent atrial fibrillation on anticoagulation with Xarelto, type II epe-upvahaz-buhupsvlb diabetes mellitus, and hypertension. Patient recently underwent cardioversion x 2 with ablation on 10/14/2023, this was reportedly unsuccessful as patient remained in atrial fibrillation. Since procedure patient and family at bedside report intractable nausea and vomiting with severe epigastric pain. Patient returned to the emergency department on Friday, and was informed that his CT scan revealed a mildly inflamed esophagus and he was discharged home. Patient reports pain returned 10 out of 10 after discharge with persistent nausea and vomiting so they went to [facility] emergency department where patient was found to have an elevated troponin and transferred back to our facility for evaluation by datastage developer. Upon arrival to our facility patient was in sinus mechanism with occasional PVC with no noted T wave or ST abnormalities showing no signs of acute ischemia upon personal review and interpretation. Labs upon arrival to our facility were also completed and reviewed. CBC unremarkable. Coagulation profile showing elevated PT of 12.9 and INR of 1.2. BMP showing mild hyperchloremia with chloride of 109 otherwise normal findings. Blood glucose 83. Liver profile showing elevated total bili of 1.5 otherwise normal findings. Initial troponin 0.206. Patient was admitted under our services with consultation to cardiology. Nic taylor after admission patient returned to atrial fibrillation with RVR. He was started on a Cardizem infusion and metoprolol dose was increased. Troponins were trended and flat at 0.206, 0.202, and 0.212. Patient had persistent epigastric pain/tenderness and intractable nausea and vomiting. Order was placed for GI cocktail and additional medications. Consult was placed to general surgeon and CT angio abdomen and pelvis was completed. CTA showing mesenteric vasculature patent with no significant stenosis, bilateral punctate renal calculi, and diverticulosis with no evidence of diverticulitis, however did show a region of colonic wall thickening at the right colon with no definite inflammatory changes. General surgery initially recommending EGD, however per datastage developer recommendations to be held at this time and managed medically due to continued need for Xarelto. Patient does re port significant improvement of pain and resolution of nausea and vomiting since receiving GI cocktail and Compazine. Continues to have mild tenderness upon palpation to epigastric region but significantly improved. Physical exam: Patient was seen and fully evaluated at bedside this morning. Patient appears to be feeling much better today. He and at bedside report patient having full resolution of nausea and vomiting and significant improvement of epigastric pain since receiving GI cocktail and Compazine yesterday. Patient currently tolerating clear liquid diet. Vital signs reviewed and stable. General: Nontoxic, no distress and appears stated age. Derm: Skin warm and dry, normal coloration for ethnicity. Head: Atraumatic, normocephalic and symmetric. Eyes: EOM's intact, no lid lag, and anicteric sclera Mouth: no lip lesions, mucus membranes moist Cardiovascular: Irregularly irregular, positive posterior tibial pulses bilaterally, and cap refill < 2 seconds. Lungs: Respirations even, regular, and unlabored on room air. Lungs CTA bilaterally, no rhonchi, no rales, no wheezing, and no accessory muscle usage. Abdominal: soft, nondistended with minimal tenderness upon palpation to epigastric region reported. Ext: ROM intact. No gross muscle atrophy, no edema, no contractures Neuro: Speech clear, face symmetrical and CN II-XII grossly intact with no noted focal neuro deficits Psych: Alert and oriented to person, place, time, and situation. Appropriate and pleasant affect. Assessment and Plan of Care: Epigastric pain accompanied by intractable nausea and vomiting, improved Lactic acidosis, resolved with IV fluid hydration -General Surgery following, discussed case thoroughly with Dr. Birmingham. Awaiting further recommendations today. -Continue clear liquid diet, diet to be advanced by general surgery team. -Order placed for Compazine 10 mg IVP every 6 hours as needed for nausea or vomiting -Continue pain management with morphine 4 mg IVP every 4 hours as needed for pain. -Continue gentle IV fluid hydration with lactated Ringer's at 100 cc/h . -Continue Protonix 40 mg IV twice daily. Elevated troponins, flat and secondary to recent ablation and cardioversion x 2. Atrial fibrillation with RVR, currently maintaining controlled ventricular rate Hypertension -Troponins trended and flat at 0.206, 0.202, and 0.212. Elevated troponins likely secondary to recent cardioversion x 2 and ablation. -Cardiology following. Discussed plan of care with Dr. Riggins. -Continue cardiac medication regimen with Xarelto 20 mg daily, metoprolol 150 mg twice daily, losartan 25 mg daily, and atorvastatin 80 mg nightly. -Cardizem infusion was stopped after controlled ventricular rate and patient receiving increased dose of metoprolol. Diabetes mellitus with hyperglycemia -Hold glipizide and patient placed on glycemic protocol with NovoLog sliding sca le. Currently blood glucose 227. Data and imaging reviewed: CBC unremarkable WBC count of 7.5, hemoglobin 15.0, platelet count of 238. BMP unremarkable with the exception of mild prerenal azotemia with BUN of 21 otherwise normal findings. Blood glucose 95. Magnesium 2.2. Liver profile unremarkable. Lactic acidosis resolved with repeat lactate after IV fluid bolus resulting at 1.7. Vital Signs reviewed. Blood pressure 108/71, heart rate 84, respiratory rate 16, temp 97.6 F, and SpO2 of 97% on room air. CODE STATUS: Full code DVT prophylaxis: Xarelto Anticipated discharge date: Pending clinical course Anticipated discharge place: Home Patient was seen independently by Nurse Pracitioner. This document was prepared using [employer] dictation software. Please allow for errors in agency sales management assistant, while rare they do occur. I reviewed the documentation as provided by the ORTEGA above, who is the original author of this note. I agree with the documented assessment and plan, with the following changes: none Objective - Vital Signs Vital signs: Vital Signs Temp 97.5 F L 10/21/23 04:00 Pulse 69 10/21/23 04:00 Resp 16 10/21/23 04:00 BP 89/56 10/21/23 04:00 Pulse Ox 94 L 10/21/23 04:00 FiO2 Intake & Output 10/20/23 10/21/23 10/21/23 18:59 06:59 18:59 Intake Total 75 98.917 Balance 75 98.917 Weight 80.6 kg Intake: IV 75 Lactated Ringers 1,000 ml 75 @ 75 mls/hr IV .[id number] [facility] Rx#:[id number] Intake, IV Titration 98.917 Amount Diltiazem 125 mg In 98.917 Sodium Chloride 0.9% 100 ml @ 5 MG/HR 5 mls/hr IV .Q24H [facility] Rx#:[id number] Other: Voiding Method Toilet Toilet # Voids 1 - Labs CBC & Chem 7: 10/22/23 09:14 10/22/23 09:14 Labs: Abnormal Lab Results - Last 24 Hours (Table) 10/20/23 10/20/23 10/20/23 Range/Units 11:28 12:05 12:05 Sodium 135 L (137-145) mmol/L Carbon Dioxide 21 L (22-30) mmol/L Glucose 210 H (74-99) mg/dL POC Glucose (mg/dL) 227 H (70-110) mg/dL Plasma Lactic Acid Eugene 3.3 H* (0.7-2.0) mmol/L Total Bilirubin 1.4 H (0.2-1.3) mg/dL 10/20/23 10/20/23 10/20/23 Range/Units 15:11 16:10 20:19 Sodium (137-145) mmol/L Carbon Dioxide (22-30) mmol/L Glucose (74-99) mg/dL POC Glucose (mg/dL) 203 H 247 H (70-110) mg/dL Plasma Lactic Acid Eugene 2.4 H* (0.7-2.0) mmol/L Total Bilirubin (0.2-1.3) mg/dL 10/21/23 Range/Units 00:06 Sodium (137-145) mmol/L Carbon Dioxide (22-30) mmol/L Glucose (74-99) mg/dL POC Glucose (mg/dL) 187 H (70-110) mg/dL Plasma Lactic Acid Eugene (0.7-2.0) mmol/L Total Bilirubin (0.2-1.3) mg/dL
--- NOTE | 2023-10-21 16:09 | P.PN ---
Progress Note - Text Progress Note Date: 10/21/23 Patient Seen and Examined. No acute events overnight. Patient is currently not having any abdominal pain. He is hungry. Denies nausea and vomiting. He was scheduled for a colonoscopy with me today however it was canceled after discussion with cardiology and patient needing to remain on his Xarelto. VSS General-NAD CVS-RRR Lungs-NLB Abdomen-soft, NTND, no guarding, no rebound tenderness, no rigidity Ext- no edema 68 [address] male with [address]-AP findings of Right Colon wall thickening, possibly representing colitis -Colonoscopy Canceled today after discussion with Cardiology -Ok for Full Liquid Diet, ADAT -PPI 40 BID -Pain and Nausea Control -Cardiology and Medicine Recs -Patient may benefit from outpatient EGD/Colonoscopy in the future once cleared from cardiology standpoint -No acute surgical intervention planned
[2023-10-21 16:43] LABS: Glucose,Whole Blood 132 mg/dL (70-110)
[2023-10-21] MEDS: PANTOPRAZOLE 40 MG TABLET PO SCH (19:56)
[2023-10-21 20:35] LABS: Glucose,Whole Blood 114 mg/dL (70-110)
[2023-10-22 05:58] LABS: Glucose,Whole Blood 106 mg/dL (70-110)
[2023-10-22] MEDS: INSULIN ASPART (NovoLOG) 100 UNIT/ML VIAL SQ SCH (06:09)
--- NOTE | 2023-10-22 07:52 | P.PN ---
Progress Note - Text Progress Note Date: 10/22/23 Patient Seen and Examined. No acute events overnight. Patient is currently not having any abdominal pain. Denies nausea and vomiting. He was scheduled for a colonoscopy yesterday however it was canceled after discussion with cardiology and patient needing to remain on his Xarelto. VSS General-NAD CVS-RRR Lungs-NLB Abdomen-soft, NTND, no guarding, no rebound tenderness, no rigidity Ext- no edema 68 year old male with CT-AP findings of Right Colon wall thickening, possibly representing colitis -Colonoscopy Yesterday after discussion with Cardiology -Ok for Full Liquid Diet, ADAT -PPI 40 BID -Pain and Nausea Control -Cardiology and Medicine Recs -Patient may benefit from outpatient EGD/Colonoscopy in the future once cleared from cardiology standpoint -No acute surgical intervention planned
[2023-10-22 10:02] LABS: HCT 46.6 % (39.0-53.0); HGB 15.7 gm/dL (13.0-17.5); MCHC 33.7 g/dL (31.0-37.0); MCV 98.2 fL (80.0-100.0); Mean Platelet Volume 6.8; Platelet Count 200 k/uL (150-450); RBC 4.74 m/uL (4.30-5.90); RDW 12.9 % (11.5-15.5); WBC 5.2 k/uL (3.8-10.6)
[2023-10-22 10:19] LABS: ALT 20 U/L (4-49); AST 22 U/L (17-59); African American GFR (CKD) >90 (>60 ml/min/1.73 sqM); Albumin 3.9 g/dL (3.5-5.0); Alkaline Phosphatase 97 U/L (38-126); Anion Gap 7 mmol/L; Blood Urea Nitrogen 14 mg/dL (9-20); Calcium 8.9 mg/dL (8.4-10.2); Carbon Dioxide 23 mmol/L (22-30); Chloride 107 mmol/L (98-107); Glucose 166 mg/dL (74-99); Magnesium 2.1 mg/dL (1.6-2.3); Non-African American GFR(CKD) 84 (>60 ml/min/1.73 sqM); Sodium 137 mmol/L (137-145); Total Bilirubin 1.5 mg/dL (0.2-1.3); Total Protein 6.8 g/dL (6.3-8.2)
[2023-10-22 11:18] VITALS: RESP 16
[2023-10-22 11:27] LABS: Glucose,Whole Blood 221 mg/dL (70-110)
[2023-10-22 13:36] VITALS: BP 148/94; TEMP 97.5
--- NOTE | 2023-10-22 14:02 | P.PN ---
Subjective Progress Note Date: 10/22/23 History of present illness: Patient is a 68-year-old male with persistent Afib with RVR, HTN, and diabetes with complaints of epigastric pain since Friday afternoon. He endorses vomiting on Friday10/18/2023 along with a cramping pain 10/03. He went to [place] where they performed a CT thorax, abdomen, and pelvis with contrast that showed trace pericardial and pleural effusions, moderate coronary artery calcifications, and moderate atherosclerotic calcifications of the abdominal aorta without aneurysm. They also informed him that he had elevated troponins and that he should return to [facility] as he was discharged from here. Previously, he had an ablation for Afib on 10/14/2023 and a cardioversion on 10/16/2023, both with Dr. Riggins. He states that after both procedures he remained in Afib with RVR. He spontaneously returned to [facility] on Friday and was discharged on Friday10/17/2023. His regular interpretative dancer is Dr. Conklin. He is maintained on Xarelto 20mg daily, losartan 25mg daily, metoprolol succinate 100mg BID. 10/21 Patient remains in a sinus rhythm. He is maintained on anticoagulation. Echocardiogram reveals EF 55%, mild to moderate MR, mild TR. Blood pressure 148/94, heart rate 84, pulse ox 97% on room air. Vitals: Afib with RVR (144bpm). General: No acute distress. Head: Atraumatic. CV: Irregular rhythm, tachycardia. Lungs: Bilateral breath sounds present. Abdomen: Soft. TTP epigastric. Extremities: No edema present. Assessment: 1. Persistent Afib with RVR. Maintained on Xarelto 20mg daily and metoprolol increased to 150 mg BID. 2. Elevated troponins. Likely related to recent ablation and cardioversion. No ischemic changes present on EKG. 3. HTN. Maintained on losartan. 4. Diabetes. Maintained on glipizide 10mg daily. Plan: 1. Patient is cleared for discharge from cardiology and patient may follow-up with Dr. Riggins in 2 weeks. Nurse practitioner note has been reviewed, I agree with documented findings and plan of care. Patient was seen and examined. Objective - Vital Signs Vital signs: Vital Signs Temp 97.8 F 10/22/23 04:00 Pulse 71 10/22/23 04:00 Resp 12 10/22/23 04:00 BP 136/88 10/22/23 04:00 Pulse Ox 98 10/22/23 04:00 FiO2 Intake & Output 10/21/23 10/22/23 10/22/23 18:59 06:59 18:59 Intake Total 440 0 350 Balance 440 0 350 Intake: Oral 440 0 350 Other: Voiding Method Toilet # Voids 2 - Labs CBC & Chem 7: 10/22/23 09:14 10/22/23 09:14 Labs: Abnormal Lab Results - Last 24 Hours (Table) 10/21/23 10/21/23 10/21/23 Range/Units 11:32 16:41 20:31 POC Glucose (mg/dL) 152 H 132 H 114 H (70-110) mg/dL
--- NOTE | 2023-10-22 15:13 | P.DS ---
Providers Date of admission: 10/20/23 00:42 Expected date of discharge: 10/22/23 Attending physician: Josue Gómez MD Consults: 10/20/23 00:20 Consult Physician Routine Consulting Provider: Alpesh Hill Consult Reason/Comments: elevated troponin, chest pain after ablation Do you want consulting provider notified?: Yes, Notify in am 10/20/23 11:32 Consult Physician Urgent Consulting Provider: Madhav Birmingham Consult Reason/Comments: epigastric pain and intractable, nausea and vomiting Do you want consulting provider notified?: Already Contacted Primary care physician: Helene Saldaña DO Hospital Course: 68-year-old male with persistent Afib with RVR, HTN, and diabetes with complaints of epigastric pain since Friday afternoon. He endorses vomiting on Friday10/18/2023 along with a cramping pain 10/03. He went to [place] where they performed a CT thorax, abdomen, and pelvis with contrast that showed trace pericardial and pleural effusions, moderate coronary artery calcifications, and moderate atherosclerotic calcifications of the abdominal aorta without aneurysm. They also informed him that he had elevated troponins and that he should return to [facility] as he was discharged from here. Previously, he had an ablation for Afib on 10/14/2023 and a cardioversion on 10/16/2023, both with Dr. Riggins. He states that after both procedures he remained in Afib with RVR. He spontaneously returned to [facility] on Friday and was discharged on Friday10/17/2023. His regular teletype clerk is Dr. Conklin. He is maintained on Xarelto 20mg daily, losartan 25mg daily, metoprolol succinate 100mg BID. Upon arrival to our facility patient was in sinus mechanism with occasional PVC with no noted T wave or ST abnormalities showing no signs of acute ischemia upon personal review and interpretation. Labs upon arrival to our facility were also completed and reviewed. CBC unremarkable. Coagulation profile showing elevated PT of 12.9 and INR of 1.2. BMP showing mild hyperchloremia with chloride of 109 otherwise normal findings. Blood glucose 83. Liver profile showing elevated total bili of 1.5 otherwise normal findings. Initial troponin 0.206. Patient was admitted under our services with consultation to cardiology. Shortly after admission patient returned to atrial fibrillation with RVR. He was started on a Cardizem infusion and metoprolol dose was increased. Troponins were trended and flat at 0.206, 0.202, and 0.212. Patient had persistent epigastric pain/tenderness and intractable nausea and vomiting. Patient was treated symptomatically with IV Protonix and antibiotics in addition to IV fluids.. Consult was placed to general surgeon and CT angio abdomen and pelvis was completed. CTA showing mesenteric vasculature patent with no significant stenosis, bilateral punctate renal calculi, and diverticulosis with no evidence of diverticulitis, however did show a region of colonic wall thickening at the right colon with no definite inflammatory changes. General surgery initially recommending EGD, however per teletype clerk recommendations AC can NOT to be held at this time, therefore colitis was managed medically due to continued need for Xarelto. He did report significant improvement of pain and resolution of nausea and vomiting since receiving GI cockt He was seen by cardiology upon admission was maintained on Xarelto 20mg daily and metoprolol was increased to 150 mg BID. Elevated troponins, likely related to recent ablation and cardioversion. No ischemic changes present on EKG. today she has symptoms have cleared and was cleared by cardiology for discharge. He will be discharged home in stable condition. He was instructed to follow up with general surgery or GI for endoscopy as well as cardiology in the office. Time for discharge 35 minutes Patient was seen and examined on the day of discharge 10/21 Patient Condition at Discharge: Good Plan - Discharge Summary Discharge Rx Participant: Yes New Discharge Prescriptions: New Atorvastatin [Lipitor] 80 mg PO HS 3 Days #60 tab Metoprolol Succinate (ER) [Toprol XL] 150 mg PO BID tab Metoprolol Tartrate [Lopressor] 150 mg PO BID #180 tablet Continue Rivaroxaban [Xarelto] 20 mg PO DAILY glipiZIDE [glipiZIDE ER] 10 mg PO DAILY tiZANidine [Zanaflex] 4 mg PO BID PRN PRN Reason: Muscle Spasm Losartan [Cozaar] 25 mg PO DAILY Discontinued Metoprolol Tartrate [Lopressor] 100 mg PO BID Discharge Medication List Rivaroxaban [Xarelto] 20 mg PO DAILY 10/31/18 [History] Losartan [Cozaar] 25 mg PO DAILY 10/20/23 [History] glipiZIDE [glipiZIDE ER] 10 mg PO DAILY 10/20/23 [History] tiZANidine [Zanaflex] 4 mg PO BID PRN 10/20/23 [History] Atorvastatin [Lipitor] 80 mg PO HS 3 Days #60 tab 10/22/23 [Rx] Metoprolol Succinate (ER) [Toprol XL] 150 mg PO BID tab 10/22/23 [Rx] Metoprolol Tartrate [Lopressor] 150 mg PO BID #180 tablet 10/22/23 [Rx] Follow up Appointment(s)/Referral(s): Feliz Riggins MD [STAFF PHYSICIAN] - 2 Weeks (Follow-up with Dr. Riggins in 2 weeks) Helene Saldaña DO [Primary Care Provider] - 1-2 days
[2023-10-22 16:42] LABS: Glucose,Whole Blood 150 mg/dL (70-110)
[2023-10-22 17:01] VITALS: PULSE 77
== END 2023-10-22 17:14 | disposition home or self-care (01) | DRG 392 ==
LOC: EC 20:11 → 3SCARD 10-20 00:42
PROVIDERS: ADMIT Internal Medicine; ATTEND Internal Medicine
DX: K57.30 Diverticulosis of large intestine without perforation or abscess without bleeding (principal); I48.19 Other persistent atrial fibrillation; E87.20 Acidosis, unspecified; E87.8 Other disorders of electrolyte and fluid balance, not elsewhere classified; E11.65 Type 2 diabetes mellitus with hyperglycemia; I10 Essential (primary) hypertension; D45 Polycythemia vera; I49.3 Ventricular premature depolarization; I25.10 Atherosclerotic heart disease of native coronary artery without angina pectoris; I70.0 Atherosclerosis of aorta; N20.0 Calculus of kidney; K44.9 Diaphragmatic hernia without obstruction or gangrene; K21.00 Gastro-esophageal reflux disease with esophagitis, without bleeding; Z79.01 Long term (current) use of anticoagulants; Z79.899 Other long term (current) drug therapy; Z79.84 Long term (current) use of oral hypoglycemic drugs; Z87.11 Personal history of peptic ulcer disease; Z87.891 Personal history of nicotine dependence; Z90.49 Acquired absence of other specified parts of digestive tract; Z88.5 Allergy status to narcotic agent; Z88.0 Allergy status to penicillin; Z88.8 Allergy status to other drugs, medicaments and biological substances
CPT/HCPCS: 99285

== ENCOUNTER 2023-10-30 14:22 | Emergency (ER) | payer MEDICARE ==
[2023-10-30 14:26] VITALS: RESP 18; TEMP 97.4
--- NOTE | 2023-10-30 15:06 | ED ---
General Adult HPI - General Chief complaint: Abdominal Pain Stated complaint: Abd pain Time Seen by Provider: 10/30/23 14:40 Source: patient, RN notes reviewed, old records reviewed Mode of arrival: ambulatory Limitations: no limitations - History of Present Illness Initial comments: Is a 68-year-old male who presents to the emergency department complaining of epigastric abdominal pain and nausea and vomiting. Patient states this has been ongoing ever since he had a cardiac catheterization for an ablation on October 13. Patient states he has been in this emergency department as well as another emergency department multiple times she has had 4 CAT scans 1 including IV contrast and they have not been able determine why he continues to have the ep igastric pain and nausea vomiting. Patient states today he had some coffee and oatmeal and as soon as he ate that and drank the coffee he started having nausea vomiting and significant epigastric abdominal pain. Patient states when he is been in the hospital for and they have given him a GI cocktail that seems to take the pain away almost entirely. Patient has not been set up for an endoscopy anywhere. Patient has no follow-up with GI patient denies chest pain difficulty breathing shortness of breath - Related Data Home Medications Medication Instructions Recorded Confirmed Rivaroxaban [Xarelto] 20 mg PO DAILY 10/31/18 10/20/23 Losartan [Cozaar] 25 mg PO DAILY 10/20/23 10/20/23 glipiZIDE [glipiZIDE ER] 10 mg PO DAILY 10/20/23 10/20/23 tiZANidine [Zanaflex] 4 mg PO BID PRN 10/20/23 10/20/23 Previous Rx's Medication Instructions Recorded Atorvastatin [Lipitor] 80 mg PO HS 3 Days #60 tab 10/22/23 Metoprolol Succinate (ER) [Toprol 150 mg PO BID tab 10/22/23 XL] Metoprolol Tartrate [Lopressor] 150 mg PO BID #180 tablet 10/22/23 Metoprolol Tartrate [Lopressor] 150 mg PO BID 30 Days #60 tab 10/22/23 Allergies Allergy/AdvReac Type Severity Reaction Status Date / Time Penicillins AdvReac Nausea & Verified 10/30/23 14:26 Vomiting Zxqdihv-HWE-ZtU Reductase AdvReac Unknown Verified 10/30/23 14:26 Inhibitor [Adicjrc-Stw-Lbt Reductase Inhibitor] tramadol AdvReac Nausea & Verified 10/30/23 14:26 Vomiting Review of Systems ROS Statement: Those systems with pertinent positive or pertinent negative responses have been documented in the HPI. ROS Other: All systems not noted in ROS Statement are negative. Past Medical History Past Medical History: Atrial Fibrillation, Diabetes Mellitus, Hypertension History of Any Multi-Drug Resistant Organisms: None Reported Past Surgical History: Ablation, Back Surgery, Cholecystectomy Additional Past Surgical History / Comment(s): sinus sx Past Anesthesia/Blood Transfusion Reactions: Postoperative Nausea & Vomiting (PONV) Additional Past Anesthesia/Blood Transfusion Reaction / Comment(s): usually have antinausea meds with anesthesia Past Psychological History: No Psychological Hx Reported Smoking Status: Former smoker Past Alcohol Use History: None Reported Past Drug Use History: None Reported - Past Family History Father Family Medical History: Chest Pain / Angina General Exam - General Exam Comments Initial Comments: GENERAL: Patient is well-developed and well-nourished. Patient is nontoxic and well- hydrated and is in mild distress. ENT: Neck is soft and supple. No significant lymphadenopathy is noted. Oropharynx is clear. Moist mucous membranes. Neck has full range of motion without eliciting any pain. EYES: The sclera were anicteric and conjunctiva were pink and moist. Extraocular movements were intact and pupils were equal round and reactive to light. Eyelids were unremarkable. PULMONARY: Unlabored respirations. Good breath sounds bilaterally. No audible rales rhonchi or wheezing was noted. CARDIOVASCULAR: There is a regular rate and rhythm without any murmurs gallops or rubs. ABDOMEN: Epigastric abdominal pain that is mild SKIN: Skin is clear with no lesions or rashes and otherwise unremarkable. NEUROLOGIC: Patient is alert and oriented x3. Cranial nerves II through XII are grossly intact. Motor and sensory are also intact. Normal speech, volume and content. Symmetrical smile. MUSCULOSKELETAL: Normal extremities with adequate strength and full range of motion. No lower extremity swelling or edema. No calf tenderness. LYMPHATICS: No significant lymphadenopathy is noted PSYCHIATRIC: Normal psychiatric evaluation. Limitations: no limitations Course Vital Signs 10/30/23 10/30/23 14:24 15:23 Temperature 97.4 F L Pulse Rate 81 70 Respiratory 18 18 Rate Blood Pressure 184/111 180/104 O2 Sat by Pulse 98 97 Oximetry Medical Decision Making - Medical Decision Making EKG is interpreted by myself that shows a sinus rhythm at 80 bpm FL under 81 QRS is 94 QT interval 370 QTc is 405. Patient's EKG shows no ST segment elevation or depression Was pt. sent in by a medical professional or institution (JOSEF Alex, [employer] NUTRITION TERRITORY MANAGER, urgent care, hospital, or [facility]...) When possible be specific @ -No Did you speak to anyone other than the patient for history (EMS, parent, family, police, friend...)? What history was obtained from this source @ -No Did you review nursing and triage notes (agree or disagree)? Why? @ -I reviewed and agree with nursing and triage notes Were old charts reviewed (outside hosp., previous admission, EMS record, old EKG, old radiological studies, urgent care reports/EKG's, [facility] records)? Report findings @ -No old charts were reviewed Differential Diagnosis? @ -Differential Abdominal Pain Men: Appendicitis, cholecystitis, diverticulosis, ischemic bowel, pancreatitis, hepatitis, UTI, gastroenteritis, AAA, incarcerated hernia, bowel obstruction, constipation, inflammatory bowel, hepatitis, peptic ulcer disease, splenic infarction, perforated viscus, testicular torsion, this is not meant to be an all-inclusive list EKG interpreted by me (3pts min.). @ -As above X-rays interpreted by me (1pt min.). @ -KUB shows no acute abnormality CT interpreted by me (1pt min.). @ -None done U/S interpreted by me (1pt. min.). @ -None done What testing was considered but not performed or refused? (CT, X-rays, U/S, labs)? Why? @ -None What meds were considered but not given or refused? Why? @ -None Did you discuss the management of the patient with other professionals (professionals i.e. JOSEF Alex, [employer] NUTRITION TERRITORY MANAGER, lab, RT, psych nurse, older adult social work specialist, roundhouse firer/fireman, teacher, information technology officer, pillowcase folder)? Give summary @ -No Was smoking cessation discussed for >3mins.? @ -No Was critical care preformed (if so, how long)? @ -No Were there social determinants of health that impacted care today? How? (Abeba elessness, low income, unemployed, alcoholism, drug addiction, transportation, low edu. Level, literacy, decrease access to med. care, [place] [facility], rehab)? @ -No Was there de-escalation of care discussed even if they declined (Discuss DNR or withdrawal of care, Hospice)? DNR status @ -No What co-morbidities impacted this encounter? (DM, HTN, Smoking, COPD, CAD, Cancer, CVA, ARF, Chemo, Hep., AIDS, mental health diagnosis, sleep apnea, morbid obesity)? @ -None Was patient admitted / discharged? Hospital course, mention meds given and route, prescriptions, significant lab abnormalities, going to OR and other pertinent info. @ -Patient wanted to be seen by GI doc I told that we did not have any she was requesting to go to [facility] and when I asked if she went to go by him and she stated no she would just drive her to the hospital and the patient will be discharged to go there immediately. Undiagnosed new problem with uncertain prognosis? @ -No Drug Therapy requiring intensive monitoring for toxicity (Heparin, Nitro, Insulin, Cardizem)? @ -No Were any procedures done? @ -No Diagnosis/symptom? @ -Epigastric abdominal pain Acute, or Chronic, or Acute on Chronic? @ -Acute Uncomplicated (without systemic symptoms) or Complicated (systemic symptoms)? @ -Complicated Side effects of treatment? @ -No Exacerbation, Progression, or Severe Exacerbation? @ -No Poses a threat to life or bodily function? How? (Chest pain, USA, CT, pneumonia, PE, COPD, DKA, ARF, appy, cholecystitis, CVA, Diverticulitis, Homicidal, Suicidal, threat to staff... and all critical care pts) @ -No Diagnosis/symptom? @ -Persistent vomiting Acute, or Chronic, or Acute on Chronic? @ -Acute Uncomplicated (without systemic symptoms) or Complicated (systemic symptoms)? @ -Complicated Side effects of treatment? @ -None Exacerbation, Progression, or Severe Exacerbation] @ -No Poses a threat to life or bodily function? @ -No - Lab Data Result diagrams: 10/30/23 15:15 10/30/23 15:15 Lab Results 10/30/23 10/30/23 10/30/23 Range/Units 15:15 15:15 15:22 WBC 8.3 (3.8-10.6) k/uL RBC 4.83 (4.30-5.90) m/uL Hgb 15.9 (13.0-17.5) gm/dL Hct 46.7 (39.0-53.0) % MCV 96.7 (80.0-100.0) fL MCH 32.9 (25.0-35.0) pg MCHC 34.0 (31.0-37.0) g/dL RDW 12.8 (11.5-15.5) % Plt Count 191 (150-450) k/uL MPV 7.0 Neutrophils % 87 % Lymphocytes % 10 % Monocytes % 2 % Eosinophils % 0 % Basophils % 0 % Neutrophils # 7.2 (1.3-7.7) k/uL Lymphocytes # 0.8 L (1.0-4.8) k/uL Monocytes # 0.2 (0-1.0) k/uL Eosinophils # 0.0 (0-0.7) k/uL Basophils # 0.0 (0-0.2) k/uL Sodium 138 (137-145) mmol/L Potassium 4.4 (3.5-5.1) mmol/L Chloride 105 (98-107) mmol/L Carbon Dioxide 23 (22-30) mmol/L Anion Gap 10 mmol/L BUN 13 (9-20) mg/dL Creatinine 0.72 (0.66-1.25) mg/dL Est GFR (CKD-EPI)AfAm >90 (>60 ml/min/1.73 sqM) Est GFR (CKD-EPI)NonAf >90 (>60 ml/min/1.73 sqM) Glucose 234 H (74-99) mg/dL Plasma Lactic Acid Eugene 2.1 H* (0.7-2.0) mmol/L Calcium 9.2 (8.4-10.2) mg/dL Total Bilirubin 1.4 H (0.2-1.3) mg/dL AST 26 (17-59) U/L ALT 22 (4-49) U/L Alkaline Phosphatase 96 (38-126) U/L Total Protein 7.6 (6.3-8.2) g/dL Albumin 4.4 (3.5-5.0) g/dL Amylase 55 (30-110) U/L Lipase 87 (23-300) U/L Disposition Clinical Impression: Epigastric abdominal pain, Acute vomiting Disposition: HOME SELF-CARE Instructions (If sedation given, give patient instructions): Abdominal Pain (ED) Additional Instructions: Patient showed follow-up to see a GI doctor as soon as possible Is patient prescribed a controlled substance at d/c from ED?: No Referrals: Helene Saldaña DO [Primary Care Provider] - 1-2 days Time of Disposition: 16:56
[2023-10-30] MEDS: MAG HYDROX/AL HYDROX/SIMETH 30 ML, HYOSCYAMINE ELIXIR 10 ML, LIDOCAINE VISCOUS 2% 10 ML PO STA (15:17)
[2023-10-30] MEDS: ONDANSETRON 4 MG/2 ML VIAL IVP STA (15:17)
[2023-10-30] MEDS: HYDROmorphone 0.5 MG/0.5 ML SYRINGE IVP STA ×2 (15:21→17:24)
[2023-10-30 15:44] LABS: Basophils % (A) 0 %; Eosinophils % (A) 0 %; HCT 46.7 % (39.0-53.0); HGB 15.9 gm/dL (13.0-17.5); Lymphocytes # (A) 0.8 k/uL (1.0-4.8); Lymphocytes % (A) 10 %; MCH 32.9 pg (25.0-35.0); MCV 96.7 fL (80.0-100.0); Monocytes # (A) 0.2 k/uL (0-1.0); Monocytes % (A) 2 %; Neutrophils # (A) 7.2 k/uL (1.3-7.7); Neutrophils % (A) 87 %; Platelet Count 191 k/uL (150-450); RBC 4.83 m/uL (4.30-5.90); RDW 12.8 % (11.5-15.5); WBC 8.3 k/uL (3.8-10.6)
--- NOTE | 2023-10-30 16:20 | XR ---
EXAMINATION TYPE: XR KUB DATE OF EXAM: 10/30/2023 4:17 PM CLINICAL INDICATION: Male, 68 years old with history of Free air; COMPARISON: None. TECHNIQUE: One radiographic view of the abdomen was obtained. FINDINGS: The bowel gas pattern is nonspecific without dilated loops of small or large bowel. . Fecal material and gas are demonstrated throughout the colon and rectum. There is no evidence for organomegaly or pneumoperitoneum. The osseous structures are intact. No ab normal calcifications are present. Postsurgical changes of the spine at L3 L4 L5. Hardware appears in tact. Mild degeneration changes this hips with osteophyte formation joint space narrowing. Cholecysto my clips present. IMPRESSION: 1. No definitive evidence of free air. Consider CT imaging if there remains concern for postsurgical complication. 2. Nonspecific bowel gas pattern without radiographic evidence for acute process.
[2023-10-30 16:26] LABS: ALT 22 U/L (4-49); AST 26 U/L (17-59); African American GFR (CKD) >90 (>60 ml/min/1.73 sqM); Albumin 4.4 g/dL (3.5-5.0); Alkaline Phosphatase 96 U/L (38-126); Amylase 55 U/L (30-110); Anion Gap 10 mmol/L; Blood Urea Nitrogen 13 mg/dL (9-20); Calcium 9.2 mg/dL (8.4-10.2); Carbon Dioxide 23 mmol/L (22-30); Chloride 105 mmol/L (98-107); Glucose 234 mg/dL (74-99); Lipase 87 U/L (23-300); Non-African American GFR(CKD) >90 (>60 ml/min/1.73 sqM); Potassium 4.4 mmol/L (3.5-5.1); Sodium 138 mmol/L (137-145); Total Bilirubin 1.4 mg/dL (0.2-1.3); Total Protein 7.6 g/dL (6.3-8.2)
[2023-10-30] MEDS: SODIUM CHLORIDE 0.9% 1,000 ML IV ONE (16:39)
[2023-10-30 17:09] VITALS: BP 178/100; PULSE 78
== END 2023-10-30 17:40 | disposition home or self-care (01) ==
LOC: EC 14:22
DX: R10.13 Epigastric pain (principal); Z87.891 Personal history of nicotine dependence; Z88.0 Allergy status to penicillin; Z88.5 Allergy status to narcotic agent; Z88.8 Allergy status to other drugs, medicaments and biological substances
CPT/HCPCS: 36415; 93005; 80053; 82150; 83605; 83690; 85025; 74018; 99284; 96374; 96375; 96376; 96361; J2405; J1170